=== PATIENT | female | born 1945 | race Caucasian/White ===

== ENCOUNTER → 2023-09-22 11:19 | Outpatient (REF) | payer MEDICARE, SELFPAY ==
[2023-09-22 11:43] LABS: Hematocrit 35.1 % (37.0-47.0); Hemoglobin 12.6 g/dL (12.0-16.0); Mean Corp Hgb Conc. 35.9 g/dL (33.0-37.0); Mean Corpuscular Hgb 35.8 pg (27.0-31.0); Mean Corpuscular Volume 99.7 fL (81.0-99.0); Mean Platelet Volume 9.9 fL (7.4-10.4); Platelet Count 238 10^3/uL (130-400); Red Blood Cell Count 3.52 10^6/uL (4.20-5.40); Red Cell Dist. Width 12.9 % (11.5-14.5); White Blood Cell Count 7.3 10^3/uL (4.8-10.8)
[2023-09-22 12:08] LABS: ALT (SGPT) 31 U/L (0-35); AST (SGOT) 32 U/L (14-36); Albumin 4.3 g/dl (3.5-5.0); Alkaline Phosphatase 95 U/L (38-126); Blood Urea Nitrogen 19 mg/dl (7-17); Calcium 9.7 mg/dl (8.4-10.2); Carbon Dioxide 28 mmol/L (22-30); Chloride 95 mmol/L (98-107); Glucose 85 mg/dl (70-99); Iron 164 ug/dl (37-170); Potassium 5.2 mmol/L (3.5-5.1); Sodium 130 mmol/L (135-145); Total Bilirubin 0.8 mg/dl (0.2-1.3); eGFR 57.66
[2023-09-22 12:17] LABS: Percent Saturation 53 % (20-50); Total Iron Binding Capacity 308 ug/dl (265-497)
[2023-09-22 13:15] LABS: Folate > 20.0 ng/ml (2.76-20); Vitamin B12 > 1000 pg/ml (239-931)
[2023-09-24 18:31] LABS: Quantiferon Mitogen minus NIL 9.06 IU/mL; Quantiferon NIL 0.03 IU/mL; Quantiferon Plus TB2 minus NIL 0.06 IU/mL (0.00-0.34); Quantiferon TB Gold Plus Negative (Negative)
== END ==
LOC: REG 11:19
PROVIDERS: ATTENDING PHYSICIAN Internal Medicine Gastroenterology; FAMILY PHYSICIAN Physician Assistant
DX: K51.018 Ulcerative (chronic) pancolitis with other complication (principal); Z79.899 Other long term (current) drug therapy
CPT/HCPCS: 36415; 80053; 82607; 82728; 82746; 83540; 83550; 85027; 86480

== ENCOUNTER → 2023-09-27 08:59 | Day surgery (SDC) | payer MEDICARE, SELFPAY | LOC: CATH 08:59 | PROVIDERS: ATTENDING PHYSICIAN Internal Medicine Cardiovascular Disease; FAMILY PHYSICIAN Nurse Practitioner Adult Health | DX: I48.91 Unspecified atrial fibrillation (principal); I10 Essential (primary) hypertension; E78.5 Hyperlipidemia, unspecified; Z87.891 Personal history of nicotine dependence; Z79.01 Long term (current) use of anticoagulants | CPT/HCPCS: 92960; 93005 ==

== ENCOUNTER 2023-12-27 07:54 | Day surgery (SDC) | payer MEDICARE, SELFPAY ==
[2023-12-22 09:06] VITALS: BMI 24.8
[2023-12-27] VITALS (14 sets, daily range): BP systolic 108–152; BP diastolic 52–97
[2023-12-27] MEDS: NSS 500 IV (08:41)
--- NOTE | 2023-12-27 12:03 | ITS.CL.ABL ---
[employer] - Ablation
Ablation
Procedure Report:
AFIB ablation:
Ms. Rios is a very pleasant 78 yr old woman with symptomatic persistent AF who had his first AF ablation in 2005 and redo in 2010 at [facility] with recurrence of persistent AF failed Flecainide and has hx of tachycardia induced
cardiomyopathy and presented today to the EP lab for atrial fibrillation ablation
Date of Procedure:
12/27/2023
Indications:
Persistent recurrent atrial fibrillation
Pre-Operative Diagnosis:
Persistent Atrial fibrillation
Post-Operative Diagnosis:
Persistent Atrial fibrillation
Procedure Performed:
Atrial fibrillation Redo ablation with wide area circumferential ablation (WACA) approach for pulmonary vein re-isolation
Roof line formation
Posterior wall isolation
Performing Physician:
Rossana Sanchez MD
Assistants:
EP staff
Anesthesia:
See anesthesia records
Detailed Description of the Procedure:
Written informed consent was obtained from the patient after a full explanation of the risks and benefits of the procedure including the risks of sedation and anesthesia.
The patient was brought to the electrophysiology laboratory in stable condition in fasting state. Continuous electrocardiographic and hemodynamic monitoring was initiated.
The initial rhythm was atrial fibrillation.
The procedure site was meticulously prepared with surgical scrub and allowed to dry with no pooling. Sterile draping was applied to cover the procedure site. The image intensifier was draped with sterile bag and positioned over the patient. After
infusion of local anesthetic, vascular access was obtained under ultrasound guidance and sheaths were placed over guide wire as detailed below.
Sheath and Catheter Placement:
The following catheters / sheaths were placed
Sheaths:
��������� Agilis sheath in right femoral vein upgraded from 8Fr in right femoral vein
��������� 7Fr in right femoral vein
��������� 9Fr in right femoral vein
Catheters:
��������� Biosense Conway Thermocool STSF bidirectional� - at locations of HRA, RV, LA and LV.
��������� Pentaray catheter � at locations of RA, RV, LA and LV
��������� ICE catheter -AcuNav -� at locations of RA, SVC, and RV.
��������� Decapolar Bard catheter in RA and CS
Intracardiac ECHO:
An 8-Bangladeshi AcuNav intracardiac ECHO (ICE) probe was advanced through the 9-Bangladeshi sheath in the left femoral vein into the right atrium under fluoroscopic and ICE ultrasound image guidance and a baseline ECHO study was performed. The left atrial
size was severely dilated. There was mild to moderate tricuspid regurgitation. The aortic valve was grossly normal. There was mild left ventricular systolic dysfunction. There was trace pericardial effusion. The MICHAEL has decreased velocities noted on
Doppler. All the four veins were identified and has good flow identified.
During the procedure, ICE was used for monitoring of complications, guidance of trans-septal puncture, monitor the catheter position and tracking ablation lesions. No change in the pericardial space noted throughout the procedure.
Trans-septal Puncture:
Heparin was initiated and infused to maintain appropriate ACT. A J-tipped guidewire was advanced through the 8-Bangladeshi sheath in the right femoral vein into the superior vena cava under fluoroscopic and ICE guidance. The 8-Bangladeshi sheath was exchanged
for an Agilis sheath which was advanced into the superior vena cava. A BRK transseptal needle was advanced until the tip was slightly behind the tip of the dilator inside the sheath. The apparatus was withdrawn until it was in contact with the fossa
ovalis The position was adjusted based on fluoroscopy and ultrasound images from ICE. Under fluoroscopic, hemodynamic and ICE ultrasound guidance, left atrium was cannulated by advancing the needle. Once atrial septum was cannulated, the needle was
pulled back and a BMW guide wire was advanced through the needle into the left atrium. The guide wire was advanced into the left superior pulmonary vein. Both the sheath and the dilator was advanced into the left atrium under fluoro and ICE
guidance. The dilator with the needle was withdrawn. Blood was aspirated from the Agilis sheath and arterial blood confirmed. The sheath was flushed. Saline injection noted into the left atrium on ICE. The mapping catheter was advanced in the Agilis
sheath into the left pulmonary vein.
3D Electroanatomic Mapping:
Using the Pentaray catheter advanced through Agilis sheath into the left atrium, an electroanatomic map (EAM) of the left atrium was created using [employer] Cart[employer] mapping system. The map was used for localization of catheter position and
tacking of ablation lesions. The EAM of the left atrium showed 4 pulmonary veins with both left and right sided pulmonary veins electrically reconnected to the LA with most of the left sided silent with only epicardial connections noted.
It showed scattered scar on the posterior and anterior septal wall of the LA. The LA was dilated in size
Following the EAM, preparation were made for ablation.
Ablation:
Ablation # 1: Pulmonary vein Isolation:
Radiofrequency ablation was performed using an open irrigation, force-sensing 3.5mm radiofrequency ablation catheter (CommonFloor STSF) by completing the circumferential lesions around the right and left �pulmonary vein achieving pulmonary vein
isolation. There was fractionalted signal noted in the antrum of the LIPV and additional ablations were placed to create full isolation.
All the ablation lesions were guided by the SANDOW SURPOINT module with the posterior lesions were limited to 45 barnes for SURPOINT lesion index goal of 400 and anterior wall lesions were limited to SURPOINT index goal of 450.
Cardioversion:
Due to the persistence of atrial fibrillation during the case, the decision was made to proceed with a cardioversion followed by the remainder of the ablation as detailed below. Therefore, a 200J shock was delivered to the chest via Zoll patches
placed with presybeterian of sinus rhythm. The patient remained hemodynamically stable throughout.
Ablation # 2: Roof line Formation:
There was a clear channel of electrical activity left in the posterior wall with multiple CFAE and AF areas on the roof significant scar noted on the roof with some residual electrical activity noted. This increased the risk of atrial flutter and
decision was made to create a roof line to block a slow conduction.
A set of radiofrequency ablations were placed on the roof line connecting the left superior pulmonary vein ablation lesions to the right superior pulmonary vein lesions rings.
The EAM of the LA showed block at the roof line with electrical current coming from bottom up to the roof.
Posterior wall isolation with the Box lesions set Formation:
There was a significant fractionation seen in the posterior wall and LA AF foci made it clear as the posterior wall is critical in maintaining the atrial fibrillation and the decision was made to isolate the posterior wall by creating a �Box�
lesions.
A set of radiofrequency ablations were placed on the floor line connecting the left inferior pulmonary vein ablation lesions to the right inferior pulmonary vein lesions rings.
The penta-ray in the posterior wall showed entrance block with dissociated potentials and the pacing from the posterior wall showed local capture with no exit from the box lesions confirming the exit block.
The esophagus was noted to be on the mid of the LA based on the locations of the esophageal temperature probe. Ablation was stopped for any temperature increase of 0.1 degree C. Max esophageal temperature was 39.1C.
Confirmation of the PVI and bidirectional block:
Following achievement of entrance block at the pulmonary veins, pacing from the pentaray in each of the four veins at 10 milliamps for 2 milliseconds showed entrance and exit block.
EP study:
Normal AV conduction noted.
The sinus node has recovered and patient remained in sinus rhythm
All PVI were rechecked at the end of the case and remained isolated with dissociated and local capture with pacing. Entrance and exit block were demonstrated in all veins.
Procedure End
ICE study was done again that showed no epicardial accumulation. No complications noted.
Following the completion of the EP study, catheters were removed. Protamine 40 mg was given at the end of the procedure and ACT was checked repeatedly. The sheaths were removed and hemostasis achieved with manual compression after acceptable ACT is
achieved.
Left atrial Pressure:
Pre-Procedure: Mean LA pressure was 14mmHg
Post-Procedure: Mean LA pressure was 14mmHg
Post-Procedure: Mean RA pressure was 8mmHg
Estimated Blood loss:
<10 cc
Specimens Removed:
None.
Implants / Devices:
None
Urine output:
None
Packs / Drains/ Tubes:
None
Instrument / Sponge Count Correct:
Yes
Complications of the Procedure:
None
Condition of Patient at Time of Transfer:
Hemodynamically stable with no neurological or vascular compromise.
Summary:
Successful atrial fibrillation ablation with circumferential bidirectional line of block at pulmonary venin antra (Pulmonary vein isolation), Roof line formation, Posterior wall isolation.
Figures from the Procedure:
Figure 1: The electroanatomic mapping (EAM) of the left atrium with bipolar voltage (purple indicates normal electrical activity with red as no myocardial muscle electric activity indicating a line of block
--- NOTE | 2023-12-27 14:39 | W.PN.UPDATE ---
Update Note
Progress Note Update
78 yo WF s/p PVI (same day). She feels great, no cp, sob, giovanni diet, voiding, amb w/o dizziness, EKG SR, R fem site c/d/i no HT, soft. She will take Eliquis at home at 6pm. Activity restrictions reviewed. She will f/u [employer] in 2 weeks. She is for d/c
home after 230p.
Ms. Rios is a very pleasant 78 yr old woman with symptomatic persistent AF who had his first AF ablation in 2005 and redo in 2010 at [facility] with recurrence of persistent AF failed Flecainide and has hx of tachycardia induced
cardiomyopathy and presented today to the EP lab for atrial fibrillation ablation
Date of Procedure:
12/27/2023
Procedure Performed:
Atrial fibrillation Redo ablation with wide area circumferential ablation (WACA) approach for pulmonary vein re-isolation
Roof line formation
Posterior wall isolation
[2023-12-27 14:41] LABS: ACT-LR - POC > 397 Seconds (116-155)
[2023-12-27 14:41] LABS: ACT-LR - POC > 397 Seconds (116-155)
== END 2023-12-27 14:44 | disposition home or self-care (01) ==
LOC: CATH 07:54
PROVIDERS: ATTENDING PHYSICIAN Internal Medicine Cardiovascular Disease; FAMILY PHYSICIAN Physician Assistant
DX: I48.19 Other persistent atrial fibrillation (principal); J44.9 Chronic obstructive pulmonary disease, unspecified; I42.0 Dilated cardiomyopathy; E78.2 Mixed hyperlipidemia; I10 Essential (primary) hypertension
CPT/HCPCS: C1894; C1730; C1732; C1766; C1892; C1759; 76937; 85347; 86900; 86901; 93005; 93656; C1760; C1769

== ENCOUNTER → 2024-01-04 10:30 | Outpatient (REF) | payer MEDICARE, SELFPAY ==
[2024-01-05 19:02] LABS: Hepatitis B Surface Antigen Negative (Negative)
[2024-01-05 19:20] LABS: Hepatitis B Core Ab, Total Negative (Negative); Hepatitis B Surface Antibody Positive
== END ==
LOC: REG 10:30
PROVIDERS: ATTENDING PHYSICIAN Internal Medicine Gastroenterology; FAMILY PHYSICIAN Physician Assistant
DX: K51.018 Ulcerative (chronic) pancolitis with other complication (principal)
CPT/HCPCS: 36415; 86704; 86706; 87340

== ENCOUNTER 2024-01-09 09:05 | Day surgery (SDC) | payer MEDICARE, SELFPAY | END 2024-01-09 11:00 | disposition home or self-care (01) | LOC: CATH 09:05 | PROVIDERS: ATTENDING PHYSICIAN Internal Medicine Cardiovascular Disease; FAMILY PHYSICIAN Physician Assistant; OTHER PHYSICIAN Nuclear Medicine Nuclear Cardiology | DX: I48.19 Other persistent atrial fibrillation (principal); Z53.09 Procedure and treatment not carried out because of other contraindication; I42.0 Dilated cardiomyopathy; I10 Essential (primary) hypertension; J44.9 Chronic obstructive pulmonary disease, unspecified; Z87.891 Personal history of nicotine dependence; Z79.01 Long term (current) use of anticoagulants | CPT/HCPCS: 93005 ==

== ENCOUNTER → 2024-03-15 10:29 | Outpatient (REF) | payer MEDICARE, SELFPAY ==
[2024-03-15 11:57] LABS: Intact PTH 76.6 pg/ml (13.6-85.8)
[2024-03-15 12:22] LABS: Vitamin D, 25-OH*** 56.1 ng/mL (30-80)
[2024-03-15 12:25] LABS: ALT (SGPT) 35 U/L (0-35); AST (SGOT) 42 U/L (14-36); Albumin 4.4 g/dl (3.5-5.0); Alkaline Phosphatase 104 U/L (38-126); Blood Urea Nitrogen 14 mg/dl (7-17); Calcium 9.7 mg/dl (8.4-10.2); Carbon Dioxide 22 mmol/L (22-30); Chloride 99 mmol/L (98-107); Glucose 95 mg/dl (70-99); HDL Cholesterol 80 mg/dl; LDL Cholesterol, Calculated 66 mg/dl; Potassium 4.7 mmol/L (3.5-5.1); Sodium 130 mmol/L (135-145); Total Bilirubin 0.9 mg/dl (0.2-1.3); Total Cholesterol 167 mg/dl (50-199); Triglyceride 107 mg/dl (10-149); Very Low Density Lipoprotein 21 mg/dl (0-30); eGFR > 60.00
[2024-03-15 12:36] LABS: TSH Reflex To Free T4 1.16 uIU/ml (0.47-4.68)
== END ==
LOC: WDC 10:29
PROVIDERS: Internal Medicine Endocrinology, Diabetes & Metabolism; ATTENDING PHYSICIAN Physician Assistant; REFERRING PHYSICIAN Internal Medicine Rheumatology
DX: Z12.31 Encounter for screening mammogram for malignant neoplasm of breast (principal); E78.2 Mixed hyperlipidemia; E83.52 Hypercalcemia; E55.9 Vitamin D deficiency, unspecified; E34.9 Endocrine disorder, unspecified; E21.3 Hyperparathyroidism, unspecified; M81.0 Age-related osteoporosis without current pathological fracture; Z68.25 Body mass index [BMI] 25.0-25.9, adult; Z79.899 Other long term (current) drug therapy
CPT/HCPCS: 36415; 77063; 77067; 80053; 80061; 82306; 82330; 83970; 84443

== ENCOUNTER → 2024-03-22 10:48 | Outpatient (REF) | payer MEDICARE, SELFPAY | LOC: REG 10:48 | PROVIDERS: ATTENDING PHYSICIAN Internal Medicine Gastroenterology | DX: K51.018 Ulcerative (chronic) pancolitis with other complication (principal) | CPT/HCPCS: 36415; 83993 ==

== ENCOUNTER → 2024-04-12 15:22 | Outpatient (REF) | payer MEDICARE, SELFPAY | LOC: MRI 3T 15:22 | PROVIDERS: ATTENDING PHYSICIAN Internal Medicine Gastroenterology; FAMILY PHYSICIAN Physician Assistant | DX: K86.2 Cyst of pancreas (principal) | CPT/HCPCS: 74183; A9575 ==

== ENCOUNTER → 2024-05-12 10:24 | Outpatient (REF) | payer MEDICARE, SELFPAY | LOC: RAD 10:24 | PROVIDERS: ATTENDING PHYSICIAN Internal Medicine Critical Care Medicine; FAMILY PHYSICIAN Physician Assistant | DX: R91.8 Other nonspecific abnormal finding of lung field (principal) | CPT/HCPCS: 71250 ==

== ENCOUNTER → 2024-06-22 06:25 | Day surgery (SDC) | payer MEDICARE, SELFPAY | LOC: GI 06:25 | PROVIDERS: ATTENDING PHYSICIAN Internal Medicine Gastroenterology | DX: K51.00 Ulcerative (chronic) pancolitis without complications (principal); K57.30 Diverticulosis of large intestine without perforation or abscess without bleeding; D12.8 Benign neoplasm of rectum; K64.8 Other hemorrhoids; Z79.01 Long term (current) use of anticoagulants | CPT/HCPCS: 45380; 88305 ==

== ENCOUNTER → 2024-08-20 10:59 | Outpatient (REF) | payer MEDICARE, SELFPAY ==
[2024-08-20 13:33] LABS: ALT (SGPT) 44 U/L (0-35); AST (SGOT) 52 U/L (14-36); Albumin 4.4 g/dl (3.5-5.0); Alkaline Phosphatase 107 U/L (38-126); Blood Urea Nitrogen 11 mg/dl (7-17); Calcium 9.5 mg/dl (8.4-10.2); Carbon Dioxide 28 mmol/L (22-30); Chloride 96 mmol/L (98-107); Glucose 87 mg/dl (70-99); Potassium 4.6 mmol/L (3.5-5.1); Sodium 133 mmol/L (135-145); Total Bilirubin 0.7 mg/dl (0.2-1.3); eGFR > 60.00
== END ==
LOC: RAD 10:59
PROVIDERS: ATTENDING PHYSICIAN Internal Medicine Rheumatology; FAMILY PHYSICIAN Physician Assistant
DX: M81.0 Age-related osteoporosis without current pathological fracture (principal); Z13.820 Encounter for screening for osteoporosis; E21.3 Hyperparathyroidism, unspecified; E55.9 Vitamin D deficiency, unspecified; K51.90 Ulcerative colitis, unspecified, without complications; Z79.899 Other long term (current) drug therapy
CPT/HCPCS: 36415; 77080; 80053

== ENCOUNTER → 2024-09-18 13:17 | Outpatient (REF) | payer MEDICARE, SELFPAY ==
[2024-09-18 14:09] LABS: % Eosinophils 1.6 % (0-6); % Immature Granulocytes 0.5 % (0-0.5); % Lymphocytes 16.5 % (20.5-51.1); % Monocytes 7.8 % (1.7-9.3); % Neutrophils 72.6 % (42.2-75.2); Absolute Basophils 0.1 10^3/uL (0-0.2); Absolute Eosinophils 0.2 10^3/uL (0-0.7); Absolute Immature Granulocytes 0.1 10^3/uL (0-0.05); Absolute Lymphocytes 1.5 10^3/uL (1.2-3.4); Absolute Monocytes 0.7 10^3/uL (0.1-0.6); Absolute Neutrophils 6.7 10^3/uL (1.4-6.5); Hematocrit 35.9 % (37.0-47.0); Hemoglobin 12.9 g/dL (12.0-16.0); Mean Corp Hgb Conc. 35.9 g/dL (33.0-37.0); Mean Corpuscular Hgb 35.5 pg (27.0-31.0); Mean Corpuscular Volume 98.9 fL (81.0-99.0); Mean Platelet Volume 10.3 fL (7.4-10.4); Nucleated Red Blood Cells % 0 %; Platelet Count 234 10^3/uL (130-400); Red Blood Cell Count 3.63 10^6/uL (4.20-5.40); Red Cell Dist. Width 12.8 % (11.5-14.5); White Blood Cell Count 9.3 10^3/uL (4.8-10.8)
[2024-09-18 14:34] LABS: ALT (SGPT) 28 U/L (0-35); AST (SGOT) 40 U/L (14-36); Alkaline Phosphatase 99 U/L (38-126); Direct Bilirubin 0.1 mg/dl (0.0-0.4); Iron 106 ug/dl (37-170); Total Bilirubin 0.5 mg/dl (0.2-1.3)
[2024-09-18 14:42] LABS: Total Protein 6.4 g/dl (6.3-8.2)
[2024-09-18 14:46] LABS: Percent Saturation 42 % (20-50); Total Iron Binding Capacity 249 ug/dl (265-497)
[2024-09-18 15:08] LABS: Ferritin 88.6 ng/ml (11.1-264.0)
== END ==
LOC: REG 13:17
PROVIDERS: ATTENDING PHYSICIAN Internal Medicine Rheumatology; FAMILY PHYSICIAN Physician Assistant
DX: K51.911 Ulcerative colitis, unspecified with rectal bleeding (principal); R79.89 Other specified abnormal findings of blood chemistry; R94.5 Abnormal results of liver function studies
CPT/HCPCS: 36415; 80076; 82728; 83540; 83550; 85025

== ENCOUNTER → 2025-01-23 12:38 | Outpatient (REF) | payer MEDICARE, SELFPAY ==
[2025-01-23 13:08] LABS: Hemoglobin 13.9 g/dL (12.0-16.0); Mean Corp Hgb Conc. 35.6 g/dL (33.0-37.0); Mean Corpuscular Hgb 36.1 pg (27.0-31.0); Mean Corpuscular Volume 101.3 fL (81.0-99.0); Mean Platelet Volume 10.4 fL (7.4-10.4); Platelet Count 205 10^3/uL (130-400); Red Blood Cell Count 3.85 10^6/uL (4.20-5.40); Red Cell Dist. Width 13.2 % (11.5-14.5); White Blood Cell Count 8.2 10^3/uL (4.8-10.8)
[2025-01-23 15:22] LABS: ALT (SGPT) 45 U/L (0-35); AST (SGOT) 57 U/L (14-36); Albumin 4.5 g/dl (3.5-5.0); Alkaline Phosphatase 123 U/L (38-126); Blood Urea Nitrogen 10 mg/dl (7-17); Calcium 9.7 mg/dl (8.4-10.2); Carbon Dioxide 24 mmol/L (22-30); Chloride 104 mmol/L (98-107); Glucose 103 mg/dl (70-99); Iron 130 ug/dl (37-170); Potassium 4.4 mmol/L (3.5-5.1); Sodium 138 mmol/L (135-145); Total Bilirubin 0.9 mg/dl (0.2-1.3); Total Protein 7.2 g/dl (6.3-8.2); eGFR > 60.00
[2025-01-23 15:31] LABS: Folate > 20.0 ng/ml (2.76-20); Vitamin B12 987 pg/ml (239-931)
[2025-01-23 15:32] LABS: Percent Saturation 50 % (20-50); Total Iron Binding Capacity 256 ug/dl (265-497)
[2025-01-25 17:39] LABS: Quantiferon Mitogen minus NIL 9.93 IU/mL; Quantiferon NIL 0.07 IU/mL; Quantiferon Plus TB1 minus NIL 0.01 IU/mL (<=0.34); Quantiferon Plus TB2 minus NIL 0.01 IU/mL (<=0.34); Quantiferon TB Gold Plus Negative (Negative)
== END ==
LOC: REG 12:38
PROVIDERS: ATTENDING PHYSICIAN Internal Medicine Gastroenterology; FAMILY PHYSICIAN Physician Assistant
DX: K51.018 Ulcerative (chronic) pancolitis with other complication (principal); J44.9 Chronic obstructive pulmonary disease, unspecified
CPT/HCPCS: 36415; 80053; 82607; 82728; 82746; 83540; 83550; 85027; 86480

== ENCOUNTER → 2025-03-04 12:36 | Outpatient (REF) | payer MEDICARE, SELFPAY ==
[2025-03-08 13:50] LABS: Calprotectin, Fecal 34 ug/g (<=49)
== END ==
LOC: REG 12:36
PROVIDERS: ATTENDING PHYSICIAN Internal Medicine Gastroenterology; FAMILY PHYSICIAN Physician Assistant
DX: K51.018 Ulcerative (chronic) pancolitis with other complication (principal)
CPT/HCPCS: 83993

== ENCOUNTER → 2025-03-19 11:32 | Outpatient (REF) | payer MEDICARE, SELFPAY | LOC: WDC 11:32 | PROVIDERS: ATTENDING PHYSICIAN Physician Assistant; FAMILY PHYSICIAN Family Medicine | DX: Z12.31 Encounter for screening mammogram for malignant neoplasm of breast (principal); N63.10 Unspecified lump in the right breast, unspecified quadrant | CPT/HCPCS: 77063; 77067 ==

== ENCOUNTER → 2025-03-26 09:23 | Outpatient (REF) | payer MEDICARE, SELFPAY | LOC: WDC 09:23 | PROVIDERS: ATTENDING PHYSICIAN Physician Assistant | DX: R92.8 Other abnormal and inconclusive findings on diagnostic imaging of breast (principal) | CPT/HCPCS: 76642 ==

== ENCOUNTER → 2025-04-29 11:22 | Outpatient (REF) | payer MEDICARE, SELFPAY ==
[2025-04-29 13:54] LABS: ALT (SGPT) 41 U/L (0-35); AST (SGOT) 49 U/L (14-36); Albumin 4.6 g/dl (3.5-5.0); Alkaline Phosphatase 113 U/L (38-126); Blood Urea Nitrogen 9 mg/dl (7-17); Calcium 10.1 mg/dl (8.4-10.2); Carbon Dioxide 26 mmol/L (22-30); Chloride 96 mmol/L (98-107); Glucose 81 mg/dl (70-99); Potassium 4.8 mmol/L (3.5-5.1); Sodium 131 mmol/L (135-145); Total Protein 7.4 g/dl (6.3-8.2); Very Low Density Lipoprotein 37 mg/dl (0-30); eGFR > 60.00
[2025-04-29 14:04] LABS: HDL Cholesterol 110 mg/dl; LDL Cholesterol, Calculated 22 mg/dl
[2025-04-29 14:10] LABS: Vitamin D, 25-OH*** 72.5 ng/mL (30-80)
== END ==
LOC: REG 11:22
PROVIDERS: ATTENDING PHYSICIAN Physician Assistant; OTHER PHYSICIAN Internal Medicine Rheumatology
DX: E78.5 Hyperlipidemia, unspecified (principal); E55.9 Vitamin D deficiency, unspecified; E83.52 Hypercalcemia; K51.90 Ulcerative colitis, unspecified, without complications; M81.0 Age-related osteoporosis without current pathological fracture; R94.5 Abnormal results of liver function studies; Z79.899 Other long term (current) drug therapy
CPT/HCPCS: 36415; 80053; 80061; 82306

== ENCOUNTER → 2025-06-12 11:01 | Outpatient (REF) | payer MEDICARE, SELFPAY | LOC: PAVMRI 11:01 | PROVIDERS: ATTENDING PHYSICIAN Internal Medicine Gastroenterology; FAMILY PHYSICIAN Physician Assistant | DX: K86.2 Cyst of pancreas (principal) | CPT/HCPCS: 74183 ==

== ENCOUNTER 2025-07-04 06:12 | Inpatient (IN) | payer MEDICARE, SELFPAY ==
[2025-07-04] VITALS (33 sets, daily range): BP systolic 80–154; BP diastolic 49–136; BMI 23.4
[2025-07-04 02:27] LABS: Hematocrit 40.3 % (37.0-47.0); Hemoglobin 14.3 g/dL (12.0-16.0); Mean Corp Hgb Conc. 35.5 g/dL (33.0-37.0); Mean Corpuscular Volume 102.5 fL (81.0-99.0); Platelet Count 213 10^3/uL (130-400); Red Cell Dist. Width 12.5 % (11.5-14.5)
[2025-07-04 02:32] LABS: INR 1.41; PT 17.8 Sec (11.4-14.6)
[2025-07-04 02:33] LABS: APTT 28.3 Sec (23.4-35.0)
[2025-07-04 02:43] LABS: ALT (SGPT) 55 U/L (0-35); AST (SGOT) 118 U/L (14-36); Albumin 4.0 g/dl (3.5-5.0); Alkaline Phosphatase 285 U/L (38-126); Blood Urea Nitrogen 19 mg/dl (7-17); Calcium 8.7 mg/dl (8.4-10.2); Carbon Dioxide 13 mmol/L (22-30); Chloride 100 mmol/L (98-107); Estimated Creatinine Clearance 26 ml/min; Glucose 101 mg/dl (70-99); Potassium 3.7 mmol/L (3.5-5.1); Sodium 128 mmol/L (135-145); Total Protein 6.7 g/dl (6.3-8.2); eGFR 38.03
[2025-07-04] MEDS: THIAMINE INJECTION 100 MG IV (03:15)
[2025-07-04] MEDS: NSS 1000 IV ×2 (03:16→04:20)
[2025-07-04] MEDS: PROTONIX 100 IV (03:25)
[2025-07-04] MEDS: PROTONIX IV 40 MG IV ×2 (03:25→21:02)
[2025-07-04 03:28] LABS: Nucleated Red Blood Cells % 0 %
[2025-07-04 03:32] LABS: Venous Blood Gas B.E. -15.8 mmol/L (-4 to +4); Venous Blood Gas O2 Sat % 75.4 %
[2025-07-04 03:38] LABS: Venous Blood Gas O2 Therapy 21
--- NOTE | 2025-07-04 03:44 | ED.GENMED ---
History of Present Illness
<HERMANN Mckenna Last Filed: 07/04/25 06:55>
General
Chief Complaint: Rectal Bleeding
Source: patient
Exam Limitations: none
Time Seen by Provider: 07/04/25 02:35
Nursing documentation reviewed up to this point in time: agreed with
History of Present Illness
History of Present Illness:
see MDM
Past History
<HERMANN Mckenna Filed: 07/04/25 06:55>
Past History
ED Past Medical History: COPD and HTN
ED Past Surgical History: Orthopedic
Social History
Tobacco: Non-smoker
Personal: Single
Living: alone
Phy Exam
<HERMANN Mckenna Filed: 07/04/25 06:55>
Physical Exam
Physical Exam:
GENERAL: Alert, slightly weak, occasionally groggy
HEAD: Hematoma to the forehead, appears old, dark and bruised
NECK: no midline tenderness, active ROM intact, no paraspinal muscle tenderness;
EYE:, left pupil uneven, EOMs intact.
ENT: o/p clr, dry mouth. no hemotympanum
CARDIAC: Regular rate and rhythm, no edema
LUNGS: Clear breath sounds bilaterally, no acute respiratory distress, no wheezes/rales/rhonchi
ABDOMEN: Soft, without focal tenderness, no r/g, no cvat
No active bleeding from her rectum, some trace pink in her vault which is heme positive, the stool looks like a brown-red color without clots
There was not a large volume GI bleeding
NEUROLOGICAL: Alert and oriented, no focal neuro deficits, CN intact, 5/5 strength, sensation intact
SKIN: Warm and dry, multiple bruises and skin tears on her elbows and knees anteriorly
MUSCULOSKELETAL: No edema, well perfused.
PSYCH: Seems slightly intoxicated
Course
<Dorcas Layton PA-C - Last Filed: 07/04/25 06:55>
Orders/Labs/Results
Orders:
Orders
07/04/25 02:09
Cardiac Monitoring- Treatment ONCE
O2 Therapy [RESP] Urgent
Titrate/Wean O2 to maintain O2 sat greater than (%): 93
Special Instructions: MAINTAIN CONTINOUS O2 SATS > OR = 93%
Pulse Ox/spot Check [RESP] Urgent
Quantity: 1
Special Instructions: ON ROOM AIR
07/04/25 02:10
Alcohol Urgent
Complete Blood Count/With Diff Urgent
Comprehensive Metabolic Panel Urgent
Creatine Phosphokinase Urgent
Comment: ADDED
PTT Urgent
Prothrombin Time Urgent
07/04/25 03:00
Add On- LAB Urgent
Tests Added?: etoh
CT Abd/pelvis Angio W/wo Iv Urgent
Comment:
Reason For Exam: rectal bleeding hypotensive
0.9% Sodium Chloride 1000 ml [Nss] 1,000 ml IV BOLUS
Thiamine Injection 100 mg IV NOW STA
07/04/25 03:03
Type+Screen Routine
BBK Wristband Number:
07/04/25 03:04
Add On- LAB Urgent
Tests Added?: alcohol, CPK
Add On- LAB Urgent
Tests Added?: cpk
07/04/25 03:06
EKG [Electrocardiogram (*1)] Urgent
Reason for Study: Fatigue / Weakness
EKG- Treatment ONCE
07/04/25 03:07
CT Head W/o Iv Contrast Urgent
Comment:
Reason For Exam: ams
07/04/25 03:09
Lactic Acid Urgent
Venous Blood Gas Urgent
%Oxygen/Room Air: 21
07/04/25 03:13
Pantoprazole 80 mg/100 ml Nss [Protonix] 80 mg in 100 ml IV NOW
Pantoprazole [Protonix IV] 40 mg IV NOW STA
07/04/25 03:45
Piperacillin/Tazo 3.375 Gram [Zosyn] 3.375 gram in 50 ml IV NOW
07/04/25 04:15
0.9% Sodium Chloride 1000 ml [Nss] 1,000 ml IV BOLUS
07/04/25 04:24
STOOL [C difficile Antigen & Toxins] Urgent
WALT Source: Feces/Stool
Specimen Description:
Date Specimen was Collected: 07/04/25
Time Specimen was Collected: 03:34
Stool Culture Urgent
WALT Source: Feces/Stool
Specimen Description:
Date Specimen was Collected: 07/04/25
Time Specimen was Collected: 03:34
07/04/25 04:38
Blood Culture Q30M
WALT Source: Blood/Venous
Specimen Description:
07/04/25 04:49
Blood Culture Q30M
WALT Source: Blood/Venous
Specimen Description:
07/04/25 05:00
0.9% Sodium Chloride 1000 ml [Nss] 1,000 ml Mvi, Adult [Multivitamin] 10 ml Thiamine Injection 100 mg IV 1,000 mls/hr
07/04/25 05:09
Lorazepam [Ativan] 0.5 mg IV NOW STA
07/04/25 05:32
Chevy Hugger-Treatment ONCE
Patient's goal temperature:: 36.1 C
Additional Instructions:: Temperature and skin assessment per unit protocol
07/04/25 05:50
Admit/Transfer Patient As Directed
Co-Sign Provider:
Level of Care: Inpatient admission
Assign to:: IMU- Intermediate Care
Physician / Group: Reinier
Diagnosis: rectal bleeding
Reason for Hospitalization: rectal bleeding, colitis
Expected length of stay greater than two midnights?: Yes
ELOS- Estimated Length of Stay in days: 2
I certify the patient meets the requirements for IP care: Yes
PRN Pain Medication Management As Directed
May give lesser potent ordered pain med per pt: Yes
preference::
Protocol:: Medication orders for pain may be administered in a
manner that supports deferring to patient preference
when the pt is:
- Requesting an ordered lesser potent pain medication.
Least to most potent pain medications are defined
as: acetaminophen < NSAID < tramadol < opioids
(morphine, oxycodone, hydromorphone).
- Requesting a lesser dose of the same medication IF
ORDERED.
- Requesting a less intrusive route of administration
if both routes are prescribed by the provider (PO <
IV).
07/04/25 06:03
Calprotectin, Fecal [S] Routine
Date Specimen was Collected: 07/04/25
Time Specimen was Collected: 06:12
Norovirus by PCR Routine
WALT Source: Feces/Stool
Specimen Description:
07/04/25 06:11
Add On - Microbiology Urgent
Tests Added?: Norovirus
07/04/25 06:22
COVID-19 Antigen Routine
Source: Nasal Swab
07/06/25 11:00
DC Protocol for Telemetry ONCE
Abnormal Lab Results
07/04/25 07/04/25
02:10 03:09
WBC 21.7 H 10^3/uL
(4.8-10.8)
RBC 3.93 L 10^6/uL
(4.20-5.40)
MCV 102.5 H fL
(81.0-99.0)
MCH 36.4 H pg
(27.0-31.0)
MPV 10.7 H fL
(7.4-10.4)
Abs Immat Gran (auto) 0.3 H 10^3/uL
(0-0.05)
Absolute Neuts (auto) 19.0 H 10^3/uL
(1.4-6.5)
Absolute Monos (auto) 1.2 H 10^3/uL
(0.1-0.6)
Immature Gran % 1.2 H %
(0-0.5)
Neutrophils % 87.7 H %
(42.2-75.2)
Lymphocytes % 5.3 L %
(20.5-51.1)
PT 17.8 H Sec
(11.4-14.6)
VBG pH 7.08 L*
(7.32-7.43)
VBG pO2 52 H mmHg
(30-50)
VBG HCO3 14.2 L mmol/L
(22-27)
Sodium 128 L mmol/L
(135-145)
Carbon Dioxide 13 L* mmol/L
(22-30)
BUN 19 H mg/dl
(7-17)
Creatinine 1.4 H mg/dL
(0.6-1.0)
Glucose 101 H mg/dl
(70-99)
Lactic Acid 6.8 H* mmol/L
(0.7-2.0)
AST 118 H U/L
(14-36)
ALT 55 H U/L
(0-35)
Alkaline Phosphatase 285 H U/L
(38-126)
07/04/25 02:10
07/04/25 02:10
Vital Signs
Initial and Last Documented VS:
Initial Vital Signs
Pulse Resp BP Pulse Ox
73 18 93/49 100
07/04/25 02:02 07/04/25 02:02 07/04/25 02:02 07/04/25 02:02
Last Documented Vital Signs
Temp Pulse Resp BP Pulse Ox
35.3 C L 113 23 137/59 92
07/04/25 05:18 07/04/25 06:45 07/04/25 06:45 07/04/25 06:30 07/04/25 06:45
<Dorene Ahuja, DO - Last Filed: 07/04/25 04:02>
Orders/Labs/Results
Orders:
Orders
07/04/25 02:09
Cardiac Monitoring- Treatment ONCE
O2 Therapy [RESP] Urgent
Titrate/Wean O2 to maintain O2 sat greater than (%): 93
Special Instructions: MAINTAIN CONTINOUS O2 SATS > OR = 93%
Pulse Ox/spot Check [RESP] Urgent
Quantity: 1
Special Instructions: ON ROOM AIR
07/04/25 02:10
Alcohol Urgent
Complete Blood Count/With Diff Urgent
Comprehensive Metabolic Panel Urgent
Creatine Phosphokinase Urgent
Comment: ADDED
PTT Urgent
Prothrombin Time Urgent
07/04/25 03:00
Add On- LAB Urgent
Tests Added?: etoh
CT Abd/pelvis Angio W/wo Iv Urgent
Comment:
Reason For Exam: rectal bleeding hypotensive
0.9% Sodium Chloride 1000 ml [Nss] 1,000 ml IV BOLUS
Thiamine Injection 100 mg IV NOW STA
07/04/25 03:03
Type+Screen Routine
BBK Wristband Number:
07/04/25 03:04
Add On- LAB Urgent
Tests Added?: alcohol, CPK
Add On- LAB Urgent
Tests Added?: cpk
07/04/25 03:06
EKG [Electrocardiogram (*1)] Urgent
Reason for Study: Fatigue / Weakness
EKG- Treatment ONCE
07/04/25 03:07
CT Head W/o Iv Contrast Urgent
Comment:
Reason For Exam: ams
07/04/25 03:09
Lactic Acid Urgent
Venous Blood Gas Urgent
%Oxygen/Room Air: 21
07/04/25 03:13
Pantoprazole 80 mg/100 ml Nss [Protonix] 80 mg in 100 ml IV NOW
Pantoprazole [Protonix IV] 40 mg IV NOW STA
07/04/25 03:45
Piperacillin/Tazo 3.375 Gram [Zosyn] 3.375 gram in 50 ml IV NOW
07/04/25 04:15
0.9% Sodium Chloride 1000 ml [Nss] 1,000 ml IV BOLUS
07/04/25 04:24
STOOL [C difficile Antigen & Toxins] Urgent
WALT Source: Feces/Stool
Specimen Description:
Date Specimen was Collected: 07/04/25
Time Specimen was Collected: 03:34
Stool Culture Urgent
WALT Source: Feces/Stool
Specimen Description:
Date Specimen was Collected: 07/04/25
Time Specimen was Collected: 03:34
07/04/25 04:38
Blood Culture Q30M
WALT Source: Blood/Venous
Specimen Description:
07/04/25 04:49
Blood Culture Q30M
WALT Source: Blood/Venous
Specimen Description:
07/04/25 05:00
0.9% Sodium Chloride 1000 ml [Nss] 1,000 ml Mvi, Adult [Multivitamin] 10 ml Thiamine Injection 100 mg IV 1,000 mls/hr
07/04/25 05:09
Lorazepam [Ativan] 0.5 mg IV NOW STA
07/04/25 05:32
Chevy Hugger-Treatment ONCE
Patient's goal temperature:: 36.1 C
Additional Instructions:: Temperature and skin assessment per unit protocol
07/04/25 05:50
Admit/Transfer Patient As Directed
Co-Sign Provider:
Level of Care: Inpatient admission
Assign to:: IMU- Intermediate Care
Physician / Group: Reinier
Diagnosis: rectal bleeding
Reason for Hospitalization: rectal bleeding, colitis
Expected length of stay greater than two midnights?: Yes
ELOS- Estimated Length of Stay in days: 2
I certify the patient meets the requirements for IP care: Yes
PRN Pain Medication Management As Directed
May give lesser potent ordered pain med per pt: Yes
preference::
Protocol:: Medication orders for pain may be administered in a
manner that supports deferring to patient preference
when the pt is:
- Requesting an ordered lesser potent pain medication.
Least to most potent pain medications are defined
as: acetaminophen < NSAID < tramadol < opioids
(morphine, oxycodone, hydromorphone).
- Requesting a lesser dose of the same medication IF
ORDERED.
- Requesting a less intrusive route of administration
if both routes are prescribed by the provider (PO <
IV).
07/04/25 06:03
Calprotectin, Fecal [S] Routine
Date Specimen was Collected: 07/04/25
Time Specimen was Collected: 06:12
Norovirus by PCR Routine
WALT Source: Feces/Stool
Specimen Description:
07/04/25 06:11
Add On - Microbiology Urgent
Tests Added?: Norovirus
07/04/25 06:22
COVID-19 Antigen Routine
Source: Nasal Swab
07/06/25 11:00
DC Protocol for Telemetry ONCE
Abnormal Lab Results
07/04/25 07/04/25
02:10 03:09
WBC 21.7 H 10^3/uL
(4.8-10.8)
RBC 3.93 L 10^6/uL
(4.20-5.40)
MCV 102.5 H fL
(81.0-99.0)
MCH 36.4 H pg
(27.0-31.0)
MPV 10.7 H fL
(7.4-10.4)
Abs Immat Gran (auto) 0.3 H 10^3/uL
(0-0.05)
Absolute Neuts (auto) 19.0 H 10^3/uL
(1.4-6.5)
Absolute Monos (auto) 1.2 H 10^3/uL
(0.1-0.6)
Immature Gran % 1.2 H %
(0-0.5)
Neutrophils % 87.7 H %
(42.2-75.2)
Lymphocytes % 5.3 L %
(20.5-51.1)
PT 17.8 H Sec
(11.4-14.6)
VBG pH 7.08 L*
(7.32-7.43)
VBG pO2 52 H mmHg
(30-50)
VBG HCO3 14.2 L mmol/L
(22-27)
Sodium 128 L mmol/L
(135-145)
Carbon Dioxide 13 L* mmol/L
(22-30)
BUN 19 H mg/dl
(7-17)
Creatinine 1.4 H mg/dL
(0.6-1.0)
Glucose 101 H mg/dl
(70-99)
Lactic Acid 6.8 H* mmol/L
(0.7-2.0)
AST 118 H U/L
(14-36)
ALT 55 H U/L
(0-35)
Alkaline Phosphatase 285 H U/L
(38-126)
07/04/25 02:10
07/04/25 02:10
Vital Signs
Initial and Last Documented VS:
Initial Vital Signs
Pulse Resp BP Pulse Ox
73 18 93/49 100
07/04/25 02:02 07/04/25 02:02 07/04/25 02:02 07/04/25 02:02
Last Documented Vital Signs
Temp Pulse Resp BP Pulse Ox
35.3 C L 113 23 137/59 92
07/04/25 05:18 07/04/25 06:45 07/04/25 06:45 07/04/25 06:30 07/04/25 06:45
<Dorcas Layton PA-C - Last Filed: 07/04/25 06:55>
MDM/Problems Addressed
Differential Diagnosis Includes:
see MDM
MDM/Problems Addressed:
Note:
CHIEF COMPLAINT(S)
Rectal bleeding.
HISTORY OF PRESENT ILLNESS
The patient 80 y/o female, presents with rectal bleeding. from EMS from home, lives alone. She reports the bleeding started recently and describes the blood as bright red. started with diarrhea and then developed. The bleeding was significant enough
to cause weakness, and the patient recounts having to crawl to open the door for assistance due to an inability to stand. She has not experienced similar episodes in the past. but she does hae h/o ulcerative colitis based on previous imaging; she
was poor historian and just repeated she was feeling very weak
pt does drink alcohol daily and admiteted to drinking here
The patient denies abdominal pain, but her blood pressure is noted to be quite low. She is currently on anticoagulation therapy with apixaban (Eliquis), though she was unable to specify the reason for this treatment
she has wounds on her legs and arms/bruises to face
unclear if she is reliable historian
ADDITIONAL HISTORY OBTAINED FROM SOURCES OTHER THAN THE PATIENT
According to the nursing staff, the patient was found on the floor, having crawled there after feeling too weak to stand. She was placed on a bedpan, and only a small volume of bright red blood was observed. No significant blood volume was noted at
home, and it was not reported that the patient was covered in blood. There was no specific mention of the amount of bleeding or measurement of blood loss.
CHRONIC MEDICAL CONDITIONS SIGNIFICANTLY AFFECTING CARE
The patient is on anticoagulation therapy with apixaban (Eliquis).
SOCIAL DETERMINANTS AFFECTING HEALTH
The patient drinks alcohol daily, which may impact her overall health and adherence to medical treatments.
MEDICATIONS
Apixaban (Eliquis) - dosage unspecified.
PHYSICAL EXAM
see above
- Nursing notes reviewed and vital signs reviewed.
PLAN
The patient will have her blood type and screen ordered to assess for potential transfusion needs. A blood alcohol level will be drawn to evaluate her alcohol use. An intravenous line is to be established, and laboratory tests, including a lactic
acid level, will be conducted. Diagnostic imaging or further examination may be necessary given the reported weakness and history of crawling on the ground.
DIFFERENTIAL DIAGNOSIS
The Differential Diagnosis includes, in no particular order and is not limited to:
1. Gastrointestinal bleeding secondary to hemorrhoids.
2. Peptic ulcer disease.
3. Colorectal cancer.
4. Gastrointestinal malignancy.
5. Diverticulosis.
6. Rectal varices.
7. Alcohol-related liver disease causing coagulopathy.
8. Anticoagulation complications.
9. Anal fissure.
10. Angiodysplasia.
nikhil erazo 80 y/o F poor historian alcoholic
h/o UC
rectal bleeding tonight, weakness, crawled on floor to get help
does not sound like large volume bleeding but pt is not reliable, hypotensive, intoxicated
no abd tenderness
iniitally hypotensive, improved with fluids
lactic acidosis ph 7.08
only had small brown/red stool (10 ml) initially ; on bedpan now
hg stable
CT colitis, no active bleeding
alcohol 56; starting to have some tremors
zosyn, sepsis fluids
bairhugger, temp 95.5
<Dorcas Layton PA-C - Last Filed: 07/04/25 06:55>
*Pulse Oximetry
SaO2: 99
Oxygen Mode of Delivery: Room air
Patient hypoxic: no (100)
*Critical Care Note
Total Time (30-74mins, 75-104mins- exclusive of procedures): Not Applicable
ED Attending Note
<Dorcas Layton PA-C - Last Filed: 07/04/25 06:55>
-
Portions of this chart may have been created with voice recognition software.� Occasional wrong word or��sound alike� substitutions may have occurred due to the inherent limitations of voice recognition software.
<Dorene Ahuja DO - Last Filed: 07/04/25 04:02>
ED Attending Note
Patient seen and examined by attending physician: Yes
I performed a history and physical exam of patient and discussed management with resident, I reviewed resident's note and agree with documented findings and plan of care.: Yes
ED Attending Note:
80-year-old woman with history of ulcerative colitis, history of A-fib chronically maintained on Eliquis. She also has history of alcohol abuse admits to daily alcohol consumption. She presents from home via EMS with complaints of bright red
rectal bleeding/diarrhea that began this evening. She admits to generalized weakness, no falls nor syncope but was unable to get up off of the floor and needed to crawl across the floor.
Moderately hypotensive upon arrival without tachycardia.
Hypotension has improved with IV fluid bolus.
80-year-old woman appears her stated age, awake, mildly drowsy. Mildly confused.
Heart is regular rate and rhythm.
Abdomen is rotund, soft, mild generalized tenderness to the lower abdomen with deep palpation only.
Liquid brown stool is heme positive.
Extremities with multiple diffuse bruises of various age. No palpable tenderness of extremities.
Concern for exacerbation of ulcerative colitis, pancolitis, infectious colitis, diverticular bleed, upper GI bleed is also a consideration.
Concern for sepsis.
Concern for coagulopathy related to Eliquis which may be aggravated by alcohol consumption. Concern for hepatic insufficiency.
Labs thus far reveal elevated white blood cell count of 21.7. Normal H&H.
Chemistries reveal moderate metabolic acidosis, acute kidney injury with creatinine of 1.4. Baseline 0.7-0.8.
Moderately elevated LFTs, has trended up from previous.
Lactic acid is pending.
Due to lethargy, unreliable historian, concern for occult head injury thus we will check CT of the head, will also check CT abdomen pelvis.
Will continue IV fluids. IV Protonix bolus and drip initiated.
Discharge Plan
Departure
Patient Disposition: Admit
Date of Disposition: 07/04/25
Time of Disposition: 05:34
Admit to: IMU
Presentation/result/management discussed w/ accepting MD/DO: Hospitalist
Condition: Critical
Covid-19: Not Applicable
Discharge Problem:
GI (gastrointestinal bleed), Acidosis, lactic, Alcoholism, Hypothermia
Interventions
Interventions:
*Risk Screen - Suicide Last Done: 07/04/25 02:02
*General Assessment Last Done: 07/04/25 02:02
*Neglect/Abuse Screening Last Done: 07/04/25 02:02
*ED- Fall Risk Assessment Last Done: 07/04/25 02:02
*ED COVID-19 Vaccine History Last Done: 07/04/25 02:08
*ED Influenza Vaccine History Last Done: 07/04/25 02:08
GN-Keeizk-Gbolvlawvn Assessment Last Done: 07/04/25 02:36
ED- Cardiac Assessment Last Done: 07/04/25 02:36
ED- Pulmonary Assessment Last Done: 07/04/25 02:36
[2025-07-04] MEDS: ZOSYN 50 IV ×3 (04:50→17:01)
[2025-07-04] MEDS: MULTIVITAMIN 1011 MG IV (05:18)
[2025-07-04] MEDS: MULTIVITAMIN 1011 ML IV (05:18)
[2025-07-04] MEDS: ATIVAN 0.5 MG IV (05:20)
--- NOTE | 2025-07-04 05:25 | HPS.HSE ---
Family Physician
-
Family Physician: Rona Ureña
Chief Complaint
-
Bright red blood per rectum
History of Present Illness
This is a 80-year-old female who has past medical history significant for alcohol dependence, atrial fibrillation on anticoagulation, ulcerative colitis, irritable bowel syndrome, tobacco dependence and COPD/emphysema who presents to the emergency
department with diarrhea and bright red blood per rectum.
Patient reports that she was in usual state of health in the morning. Throughout the day she says she was well she was able to drive and accomplish her activities of daily living. She reports that she drinks her usual amount of alcohol which is 3
glasses of rum daily. Symptoms did not begin until around 8 PM. She said she suddenly felt weak and had to crawl to the bathroom. When she was crawling she started having continuous watery diarrhea. Initially it was nonbloody but then later that
she saw red-colored stooling materials. Discontinued for several sessions. She attempted to get up for but felt so weak and she crawled to the phone to call EMS.
He did not have any vomiting. She denies abdominal pain. She denies any nausea. She denies any recent melena or hematochezia. She denies any prior diarrhea compared to today. She has been compliant with IBD infusions.
She has not had any fevers or chills. No known sick contacts.
MRI of the abdomen was performed recently for cystic mass of the pancreas which shows no significant interval increase in size.
She was afebrile, blood pressure was 132/59 and pulse rate of 100. She did had a low-grade temp of 95.5 rectally. Oxygen saturation is 95% on room air.
WBC was 21 with left shift, hemoglobin is 14 and a plate count of 213. Sodium is 128 with potassium of 3.7 bicarb of 13 BUN 19 and creatinine 1.4 and a glucose of 101. LFTs shows a slight increase in AST and ALT. Bilirubin was unremarkable. ECG
shows junctional escape rhythm at 77 no atrial fibrillation. Blood gas was 7.08/[address] of the abdomen and pelvis shows hepatic steatosis, cholelithiasis without cholecystitis, no pancreatitis, no obstructing renal stone, there is an acute gastroenteritis and colitis without obstruction or perforation, no contrast examination within
the bowl to suggest active hemorrhage.
CT of the head without any acute disease. Chronic infarcts noted.
Medical History
Past Medical History
Past Medical History: Reports Arrhythmia (Atrial fibrillation), COPD (Will move to as needed but she does not use), HTN, Hypercholesterolemia and Other (Ulcerative colitis, carotid artery disease, alcohol dependence)
Past Surgical History: Reports Gynocological (Total abdominal hysterectomy and bilateral salpingo-oophorectomy 1983), Orthopedic (Right hip replacement) and Other (Right foot consists removal,)
Additional Past Surgical History:
Status post cardioversion
Status post ablation
Social History
Tobacco: Former Smoker
Alcohol: Daily
Drug: None
Personal: Single
Living: Alone
Employment: Retired
Family History
Family History: Not pertinent
Allergies / Home Medications
Allergies reflects when Allergies were last updated in [facility].
Home Medications with original date entered in [facility]
Allergy/Medication List:
Allergies
Allergy/AdvReac Type Severity Reaction Status Date / Time
sotalol (From Betapace) Allergy Rash Verified 07/04/25 02:08
tiotropium (From Spiriva Allergy Rash Verified 07/04/25 02:08
with HandiHaler)
Home Medications
atorvastatin 20 mg tablet 20 mg PO DAILY 11/01/19
denosumab 60 mg/mL subcutaneous syringe (Prolia) 60 mg SQ Q6M 11/01/19
duloxetine 60 mg capsule,delayed release 60 mg PO DAILY 11/01/19
timolol maleate 0.25 % eye drops 1 drp LEFT EYE DAILY 11/01/19
trazodone 150 mg tablet 150 mg PO HS 11/01/19
valacyclovir 500 mg tablet 1,000 mg PO DAILY 11/01/19
netarsudil 0.02 % eye drops (Rhopressa) 1 drp BOTH EYES HS ##0 11/02/19
apixaban 5 mg tablet (Eliquis) 5 mg PO BID #60 tabs 11/05/19
diltiazem HCl 180 mg capsule,extended release 24 hr 180 mg PO DAILY #30 caps 11/05/19
Multivitamin & Vitamin E 1 tab PO BID 12/27/23
budesonide 160 mcg-glycopyr 9 mcg-formot 4.8 mcg/actuation HFA inhaler (Breztri Aerosphere) 2 inh inhalation BID 12/27/23
levalbuterol tartrate 45 mcg/actuation aerosol inhaler 2 inh inhalation Q6H PRN COPD 12/27/23
lisinopril 20 mg tablet 20 mg PO DAILY 12/27/23
metoprolol succinate 25 mg tablet,extended release 24 hr 50 mg PO DAILY 12/27/23
pantoprazole 40 mg tablet,delayed release (Protonix) 40 mg PO DAILY #14 tabs 12/27/23
prednisolone acetate 1 % eye drops,suspension 1 drp LEFT EYE BID 12/27/23
vedolizumab 300 mg intravenous solution (Entyvio) 300 mg IV Q8W 12/27/23
Review of Systems
-
Constitutional: Reports No Symptoms
EENT: Reports No Symptoms
Respiratory: Reports No Symptoms
Cardiac: Reports No Symptoms
Abdomen/GI: Reports Diarrhea and Bloody Stools
: Reports No Symptoms
Musculoskeletal: Reports No Symptoms
Skin: Reports No Symptoms
Neurological: Reports Dizzy
Endocrine: Reports No Symptoms
Hematologic/Lymphatic: Reports No Symptoms
Psych: Reports No Symptoms
Physical Exam
Vital Signs
Vital Signs
Pulse Resp BP Pulse Ox
100 16 132/59 94
07/04/25 04:45 07/04/25 04:45 07/04/25 04:45 07/04/25 05:00
Physical Exam
General: No Apparent Distress
HEENT: NormoCephalic, Anicteric, Moist mucous membranes and PERRLA; No Oxygen
Respiratory: Clear and Decreased Breath Sounds
Cardiac: S1/S2, Irregular Rhythm and Tachycardia
Breast: Deferred by me
GI: Soft, Non Tender, Non Distended and Normal Bowel Sounds
Rectal: Brown, Red and Hem Positive
Genito-urinary: Deferred by me
Musculoskeletal: No Clubbing, No Cyanosis and No Edema
Skin: Warm
Neuro: Alert, Nonfocal/grossly intact and Tremors
Laboratory Results
-
07/04/25 02:10
07/04/25 02:10
Laboratory Results
PT 17.8 Sec (11.4-14.6) H 07/04/25 02:10
INR 1.41 07/04/25 02:10
APTT 28.3 Sec (23.4-35.0) 07/04/25 02:10
Lactic Acid 6.8 mmol/L (0.7-2.0) H* 07/04/25 03:09
Total Bilirubin 1.0 mg/dl (0.2-1.3) 07/04/25 02:10
AST 118 U/L (14-36) H 07/04/25 02:10
ALT 55 U/L (0-35) H 07/04/25 02:10
Alkaline Phosphatase 285 U/L (38-126) H 07/04/25 02:10
Data Reviewed
-
CT Scan: Report Reviewed by me
Medical Tests (Nuc Med, Echo, EKG etc): Image Personally Visualized and interpreted
Lab Data: Labs Reviewed by me
Old Records: Reviewed
Impression/Plan
-
IMPRESSION:
80-year-old female with past medical history significant for ulcerative colitis and was on antiviral, atrial fibrillation on anticoagulation, emphysema, alcohol dependence, hypertension, GERD presenting to the emergency department with dizziness and
diarrhea that started within the last 24 hours and there is associated bright red blood per rectum. She has no nausea or vomiting. She has not seen any recent melena. She is hemodynamically stable on arrival with a blood pressure of 130/60 and
she was tachycardic to 100. Labs were notable for a white count of 21.7, sodium of 128, bicarb of 13 with a anion gap metabolic acidosis and a lactic acid of 6. CT of the abdomen and pelvis shows acute gastroenteritis and colitis without
obstruction or perforation and no active bleed. She had a colonoscopy last year showing diverticulosis, polyps but no colitis and no evidence of inflammatory bowel disease on the biopsy.
PLAN:
Diarrhea -infectious gastroenteritis/colitis more likely rather than inflammatory
� Admit to IMU
� Stool cultures, C. difficile pending
�Check fecal calprotectin, norovirus, covid
� Will continue IV Zosyn for now
�Continue with fluid resuscitation as below
GI bleed�infectious diarrhea on Eliquis likely source of this bright red blood per rectum. Patient does have diverticulosis on prior colonoscopy and we cannot rule out a diverticular bleed.
� Type and screen for now
� Trend H&H
� Fluid resuscitation as above
� Continue PPI as IV daily
� GI consultation
Anion gap metabolic acidosis�anion gap metabolic acidosis all appears to be stemming from the lactic acidosis. Suspect alcoholic ketoacidosis as a primary etiology of this lactic acidosis but cannot rule out sepsis entirely.
� IV fluids with D5 normal saline for now
� Trend lactic acid
CAIT
- Fluid resuscitation as above
Atrial fibrillation
- Hold Eliquis
� Continue metoprolol succinate with hold parameters
- Holding lisinopril
Alcohol dependence alcohol level of 56 on arrival currently without withdrawal
� Msas protocol
� Thiamine, folate, D5 normal saline
Emphysema
- Continue home as needed albuterol
� Continue inhaled steroids and tiotropium as well as inhaled long-acting beta agonist
DVT prophy�SCDs for now
CODE STATUS�full code
[2025-07-04 06:45] LABS: COVID-19 Antigen Negative (Negative)
--- NOTE | 2025-07-04 08:35 | CM ---
Chart reviewed and spoke with patient at ED bedside
Lives alone in a [place] home community
[employer] independent with ADLs and using cane for ambulation outside
Drives herself
Son Zac is in [place] and per patient he is supportive
Patient reports that her friends and neighbors are supportive and would be able to provide transportation at the time of DC if needed
PCP Dr. Rona Ureña
RX plan yes
Pharmacy [facility] on [facility]
no hx of VN nor SNF
DCP is to return home; friend/neighbor can provide transportation
CM will continue to follow up for any dcp needs
[2025-07-04] MEDS: ATIVAN 1 MG PO ×3 (10:05→16:35)
[2025-07-04] MEDS: CARDIZEM CD 180 MG PO (10:05)
[2025-07-04] MEDS: LIPITOR 20 MG PO (10:05)
[2025-07-04] MEDS: TOPROL XL 50 MG PO (10:06)
[2025-07-04] MEDS: CYMBALTA DELAYED RELEASE 60 MG PO (10:06)
[2025-07-04] MEDS: THIAMINE INJECTION 200 MG IV ×2 (10:06→21:03)
[2025-07-04] MEDS: D5/0.9% SODIUM CHLORIDE 1000 IV (10:08)
[2025-07-04] MEDS: FOLVITE 1 MG PO (10:08)
[2025-07-04] MEDS: VALTREX 500 MG PO (11:09)
--- NOTE | 2025-07-04 11:37 | CON.GI ---
Addendum entered and electronically signed by Gris Hooper Do, MD 07/04/25 16:07:
I saw and evaluated the patient. I reviewed the resident�s note and agree with findings and plan as documented in the resident�s note.
Layla is an 80yo W known to myself for h/o UC pancolitis on entyvio last 07/01/25, ETOH use, and afib on eliquis who was admitted for weakness and found down. She tells me that for days she has had poor appetite and decrease oral intake. She lives
alone and not wanting ot stop ETOH intake. She then was dizzy on floor and then had bloody diarrhea with abd pain. Vitals HR 110 BP 123/64 today BP 80s. chronically ill appearing. diffuse TTP. Labs reviewed. CTAP diffuse enterocolitis, no
active GIB
Impressions
- Weakness/hypotension
- Bloody diarrhea
suspect ischemic colitis. less likely UC flare up given recent Cscope in remission
- Mild leukocytosis
- Ulcerative pancolitis diagnosed >20yrs ago on entyvio Q8wks
- Elevated LFTs
- Hepatic steatosis
- Pancreatic cysts
MRI 05/2025 stable size
- COPD
- Afib on AC
Recommendations
- Check stool studies for infection
- Fecal calprotectin pending
- Add ESR/CRP
- c/w abx
- Optimize BP
- ETOH cessation
- Hold anticoagulation
- CLD adv as tolerates
- If does not improve consider flex sigm
Will follow with you
Original Note:
Consultation
-
Date/Time Consultation Requested: 07/04/25 07:25
Date/Time Consultation Performed: 07/04/25 08:00
Requesting Provider: Dr. Anibal Hills
Performing Provider: Dr. Gris Caballero
Reason for Consultation: h/o ulcerative colitis coming in w/ diarrhea, rectla bleed
Medical History
Chief Complaint / HPI
Chief Complaint: bloody diarrhea
History of Present Illness:
80yoF PMH AUD, afib on eliquis, COPD, ulcerative colitis and IBS presenting with acute onset of diarrhea and blood in her stool.
Pt described eating dinner last night with acute onset of immense diarrhea that eventually she noted had blood on the toilet seat. She described episodes of fecal incontinence due to the urgency of the BM. She reports diffuse abdominal pain, throat
pain, and bloating. She reports being so weak yesterday that she could not walk and had to crawl to the bathroom.
Pt receives Etyvio infusions every [address] Caballero, last one being last week. Pt reports usual change in bowels before the infusion with worsened diarrhea the weak before and rebound constipation after. She explained that she has been
constipated this past week. Denies changes in diet, eating raw vegetables or meat recently. Last night for dinner prior to the episode she ate spagetti and meatballs that were fully cooked.
Past Medical History
Past Medical History: Arrhythmias (afib ), COPD and Other (alcohol use disorder, ulcerative colitis)
Past Surgical History: None (denies abdominal surgery)
Social History
Tobacco: Former Smoker (quit 21 years ago)
Alcohol: Daily (reported 3 glasses a day)
Drug: None
Allergies / Home Medications
Allergy/AdvReac Type Severity Reaction Status Date / Time
sotalol (From Betapace) Allergy Rash Verified 07/04/25 02:08
tiotropium (From Spiriva Allergy Rash Verified 07/04/25 02:08
with HandiHaler)
�Medication �Instructions �Recorded
atorvastatin 20 mg tablet 20 mg PO DAILY High Cholesterol 11/01/19
denosumab 60 mg/mL subcutaneous 60 mg SQ Q6M Osteoporosis 11/01/19
syringe (Prolia)
duloxetine 60 mg capsule,delayed 60 mg PO DAILY Mental 11/01/19
release Health/Anxiety
timolol maleate 0.25 % eye drops 1 drp LEFT EYE DAILY Eye Condition 11/01/19
trazodone 150 mg tablet 150 mg PO HS Sleep 11/01/19
valacyclovir 500 mg tablet 1,000 mg PO DAILY Infection 11/01/19
netarsudil 0.02 % eye drops 1 drp BOTH EYES HS Eye Condition 11/02/19
(Rhopressa) ##0
apixaban 5 mg tablet (Eliquis) 5 mg PO BID #60 tabs 11/05/19
diltiazem HCl 180 mg 180 mg PO DAILY #30 caps 11/05/19
capsule,extended release 24 hr
Multivitamin & Vitamin E 1 tab PO BID Supplement 12/27/23
budesonide 160 mcg-glycopyr 9 2 inh inhalation BID 12/27/23
mcg-formot 4.8 mcg/actuation HFA Lung/Breathing Issues
inhaler (Breztri Aerosphere)
levalbuterol tartrate 45 2 inh inhalation Q6H PRN COPD 12/27/23
mcg/actuation aerosol inhaler
lisinopril 20 mg tablet 20 mg PO DAILY Blood Pressure 12/27/23
metoprolol succinate 25 mg 50 mg PO DAILY Blood Pressure 12/27/23
tablet,extended release 24 hr
pantoprazole 40 mg tablet,delayed 40 mg PO DAILY #14 tabs 12/27/23
release (Protonix)
prednisolone acetate 1 % eye 1 drp LEFT EYE BID Eye Condition 12/27/23
drops,suspension
vedolizumab 300 mg intravenous 300 mg IV Q8W Gastrointestinal 12/27/23
solution (Entyvio) Issue
Review of Systems
Vital Signs
Temp Pulse Resp BP Pulse Ox
98.0 F 131 27 154/75 95
07/04/25 11:00 07/04/25 10:06 07/04/25 07:45 07/04/25 10:06 07/04/25 07:51
Physical Exam
Exam
General: Pain and Fever
HEENT: Normocephalic, Anicteric and Moist Mucous Membranes
Respiratory: Clear and Non Labored Respirations
Cardiac: S1/S2
GI: Soft, Tender (diffuse) and Distended
Skin: Warm and Dry
Neuro: AO x 3 and Nonfocal/Grossly Intact
Psych: Calm
Results
WBC 21.7 10^3/uL (4.8-10.8) H 07/04/25 02:10
Hgb 14.3 g/dL (12.0-16.0) 07/04/25 02:10
Hct 40.3 % (37.0-47.0) 07/04/25 02:10
MCV 102.5 fL (81.0-99.0) H 07/04/25 02:10
Plt Count 213 10^3/uL (130-400) 07/04/25 02:10
Absolute Neuts (auto) 19.0 10^3/uL (1.4-6.5) H 07/04/25 02:10
PT 17.8 Sec (11.4-14.6) H 07/04/25 02:10
INR 1.41 07/04/25 02:10
APTT 28.3 Sec (23.4-35.0) 07/04/25 02:10
Sodium 128 mmol/L (135-145) L 07/04/25 02:10
Potassium 3.7 mmol/L (3.5-5.1) 07/04/25 02:10
Chloride 100 mmol/L (98-107) 07/04/25 02:10
Carbon Dioxide 13 mmol/L (22-30) L* 07/04/25 02:10
BUN 19 mg/dl (7-17) H 07/04/25 02:10
Creatinine 1.4 mg/dL (0.6-1.0) H 07/04/25 02:10
Calcium 8.7 mg/dl (8.4-10.2) 07/04/25 02:10
Total Bilirubin 1.0 mg/dl (0.2-1.3) 07/04/25 02:10
AST 118 U/L (14-36) H 07/04/25 02:10
ALT 55 U/L (0-35) H 07/04/25 02:10
Alkaline Phosphatase 285 U/L (38-126) H 07/04/25 02:10
Diagnostic Image Results: Ct ab
IMPRESSION:
1. No overt CTA evidence for active GI bleed.
2. Suspect diffuse enterocolitis.
3. No abdominal aortic aneurysm or dissection.
4. Additional stable chronic findings as described.
Prior GI Procedures:
EGD:
Colonoscopy: 06/22/24
Impression: - Non-bleeding internal hemorrhoids.
- Diverticulosis in the sigmoid colon and in the
descending colon.
- The examined portion of the ileum was normal.
Biopsied.
- One 3 mm polyp in the rectum, removed with a jumbo
cold forceps. Resected and retrieved.
- Four biopsies were obtained in the rectum, in the
sigmoid colon, in the descending colon, in the
transverse colon, in the ascending colon and in the
cecum.
Assessment / Plan
-
80yoF PMH AUD, afib on eilquis, ulcerative colitis, COPD presenting with acute onset of diarrhea and blood in her stool.
Ms. Rios was in her usual state of health when she began having severe diarrhea with urgency, abdominal pain, bloating, and weakness. She reports noticing after multiple BM that she had blood on the toilet seat but could not quantify the blood.
She had her entyvoi infusion last week with reported constipation this week. She has an elevated WBC with tachycardia and a sore throat concerning for infectious etiology colitis vs diverticulitis in setting of known diverticulosis on colonoscopy 1
year ago. Elevated LFTs in setting of sepsis vs chronic alcohol use
#diarrhea with BRBPR
- Trend H and H. transfuse hg<7
- Infectious panel pending. Stool cultures, norovirus negative, c diff negative, shiga and salmonella pending
- Holding colonoscopy at current time
PENDING ATTENDING RECOMMENDATIONS
-
-
Thank you for consultation and allowing me to participate in the patient's care. Please call the cold roll packer sheet iron GI physician during the after hours with any questions or concerns.
[2025-07-04] MEDS: VENTOLIN NEBULES 2.5 MG INH (12:19)
--- NOTE | 2025-07-04 12:52 | W.PN.UPDATE ---
Update Note
Progress Note Update
patient admitted 5 30 AM with colitis with Lower GI bleed - started on IVF, IV abx with GI Consulted
C. Diff negative; pending additional stool studies
at present, diarrhea continues
patient also receiving IV Ativan for MSAS of 5 recently
Assessment:
Acute colitis with lower GI bleed, exacerbated by Eliquis
- C. Diff negative; other stool studies (including calprotectin) pending
- IVF
- IV Zosyn
- follow Hb; continue PPI Daily
- follow GI recs
Lactic acidosis possibly related to ETOH ketoacidosis vs sepsis (colitis with lactic acidosis)
- repeat BMP pending; may need bicarbonate IVF
- lactic acidosis resolved
CAIT, likely pre-renal from hypovolemia
acute hyponatremia
- continue IVF; repeat labs
Parox A. Fib
- holding Eliquis
- continue BB
Essential HTN
- hold HERI
ETOH Dependance, with ETOH level 56 on admission
- continue MSAS Protocol
- cessation counselling provided
chronic Emphysema
- Continue home as needed albuterol nebs
- Continue inhaled steroids and tiotropium as well as inhaled long-acting beta agonist
DVT ppx: SCDs
Code: Full
[2025-07-04 13:34] LABS: Hematocrit 33.7 % (37.0-47.0); Hemoglobin 11.5 g/dL (12.0-16.0); Mean Corp Hgb Conc. 34.1 g/dL (33.0-37.0); Mean Corpuscular Volume 105.0 fL (81.0-99.0); Platelet Count 152 10^3/uL (130-400); Red Cell Dist. Width 12.7 % (11.5-14.5)
--- NOTE | 2025-07-04 13:42 | PTCARENOTE ---
Pt admitted from ED with GIB, watery diarrhea, weakness. Pt with multiple areas of bruising and skin tears from falls at home. Also reports that she had to crawl to the bathroom due to weakness and that's why she has so many injuries. Pt very
tremulous, tachy and SOB. MD at bedside. MSAS 4-5. See MAR. Oriented to unit.
[2025-07-04 13:45] LABS: ALT (SGPT) 43 U/L (0-35); AST (SGOT) 91 U/L (14-36); Albumin 3.0 g/dl (3.5-5.0); Alkaline Phosphatase 177 U/L (38-126); Blood Urea Nitrogen 21 mg/dl (7-17); Calcium 7.0 mg/dl (8.4-10.2); Carbon Dioxide 14 mmol/L (22-30); Chloride 105 mmol/L (98-107); Estimated Creatinine Clearance 27 ml/min; Glucose 142 mg/dl (70-99); Potassium 3.8 mmol/L (3.5-5.1); Sodium 130 mmol/L (135-145); Total Protein 5.2 g/dl (6.3-8.2); eGFR 41.57
[2025-07-04 17:14] LABS: C-Reactive Protein 43.20 mg/L (0.0-10.00)
[2025-07-04] MEDS: SODIUM BICARBONATE 1150 MEQ IV (18:19)
[2025-07-04] MEDS: D5/0.9% SODIUM CHLORIDE IV (18:24)
--- NOTE | 2025-07-04 20:29 | PTCARENOTE ---
Assumed care of pt from dayshift RN. pt answers all orientation questions, forgetful at times. restless but easily redirected. MSAS maintained per orders. see work list intervention for scoring and assessment. sinus tach on monitor. HR 105. satting
95% on RA. assessment as documented. call light in reach.
[2025-07-04] MEDS: PRED FORTE 1% EYE DROPS 1 DROP LEFT EYE (21:03)
[2025-07-04] MEDS: NSS (PRESERVATIVE FREE) 10 ML IV (21:03)
[2025-07-04] MEDS: DESYREL 150 MG PO (22:47)
[2025-07-04] MEDS: NON-FORMULARY ITEM 1 DROP LEFT EYE (22:48)
[2025-07-05] VITALS (12 sets, daily range): BP systolic 100–155; BP diastolic 53–75; BMI 24.2
[2025-07-05] MEDS: ZOSYN 50 IV ×4 (00:46→18:57)
[2025-07-05 05:35] LABS: Hematocrit 28.8 % (37.0-47.0); Hemoglobin 10.6 g/dL (12.0-16.0); Mean Corp Hgb Conc. 36.8 g/dL (33.0-37.0); Mean Corpuscular Volume 100.3 fL (81.0-99.0); Platelet Count 141 10^3/uL (130-400); Red Cell Dist. Width 12.4 % (11.5-14.5)
[2025-07-05 06:09] LABS: Hematocrit 30.1 % (37.0-47.0); Hemoglobin 10.9 g/dL (12.0-16.0); Mean Corp Hgb Conc. 36.2 g/dL (33.0-37.0); Mean Corpuscular Volume 99.0 fL (81.0-99.0); Platelet Count 143 10^3/uL (130-400); Red Cell Dist. Width 12.4 % (11.5-14.5)
[2025-07-05 06:37] LABS: Hepatitis C Antibody Negative (Negative)
[2025-07-05 06:47] LABS: ALT (SGPT) 38 U/L (0-35); AST (SGOT) 60 U/L (14-36); Albumin 2.8 g/dl (3.5-5.0); Alkaline Phosphatase 138 U/L (38-126); Blood Urea Nitrogen 16 mg/dl (7-17); Calcium 6.8 mg/dl (8.4-10.2); Carbon Dioxide 21 mmol/L (22-30); Chloride 99 mmol/L (98-107); Estimated Creatinine Clearance 35 ml/min; Glucose 118 mg/dl (70-99); Potassium 3.6 mmol/L (3.5-5.1); Sodium 124 mmol/L (135-145); Total Protein 5.2 g/dl (6.3-8.2); eGFR 56.95
--- NOTE | 2025-07-05 07:53 | W.PN.GI.CBS2 ---
Today's Communication / Plan
-
PENDING ATTENDING RECOMMENDATIONS
Continue abx. Likely infectious etiology
Assessment / Plan
-
80yoF PMH AUD, afib on eilquis, ulcerative colitis, COPD presenting with acute onset of diarrhea and blood in her stool.
Ms. Rios was in her usual state of health when she began having severe diarrhea with urgency, abdominal pain, bloating, and weakness. She reports noticing after multiple BM that she had blood on the toilet seat but could not quantify the blood.
She had her entyvoi infusion last week with reported constipation this week. She has an elevated WBC with tachycardia and a sore throat concerning for infectious etiology colitis vs diverticulitis in setting of known diverticulosis on colonoscopy 1
year ago. Elevated LFTs in setting of sepsis vs chronic alcohol use
Today, pt reports continued fecal urgency and loose stools with abdominal tenderness and distention similar to yesterday. Her most recent stools have been brown without evidence of blood. BC gram neg bacilli. LFTs downtrending. Symptoms seem more
likely infectious vs colitis flare due to acuity. Plan to continue monitoring on antibiotics for GI symptoms improvement.
#diarrhea with BRBPR
- Trend H and H. transfuse hg<7
- Infectious panel pending. Stool cultures, norovirus negative, c diff negative, shiga and salmonella pending
- Holding colonoscopy at current time
- BC gram neg bacilli. Continue abx
Subjective
Subjective
Date of Service: July 05, 2025
Pt reports still feeling ill this morning with abdominal tenderness and distention. She reports that her BM are no longer bloody but continue to be loose with urgency.
Objective
Data Reviewed
Laboratory Data:
Laboratory Results
07/05/25 05:58
07/05/25 05:58
Laboratory Results
PT 17.8 Sec (11.4-14.6) H 07/04/25 02:10
INR 1.41 07/04/25 02:10
APTT 28.3 Sec (23.4-35.0) 07/04/25 02:10
Total Bilirubin 0.7 mg/dl (0.2-1.3) 07/05/25 05:58
AST 60 U/L (14-36) H 07/05/25 05:58
ALT 38 U/L (0-35) H 07/05/25 05:58
Alkaline Phosphatase 138 U/L (38-126) H 07/05/25 05:58
Vital Signs and I&O:
Vital Signs
Temp Pulse Resp BP Pulse Ox
99.5 F 95 26 121/60 96
07/05/25 03:13 07/05/25 06:00 07/05/25 06:00 07/05/25 06:00 07/05/25 06:00
Physical Exam
Physical Exam
HEENT: Anicteric and Moist mucous membranes
Cardiology: Normal Sinus Rhythm
Pulmonary: Clear
GI: Soft, Distended (nontympanic) and Tender (mildly)
Extremities: No Edema and Other (bruises across bilateral arms)
Neuro: Non Focal
[2025-07-05] MEDS: CARDIZEM CD 180 MG PO (08:00)
[2025-07-05] MEDS: VALTREX 500 MG PO (08:00)
[2025-07-05] MEDS: CALCIUM GLUCONATE 100 IV (08:00)
[2025-07-05] MEDS: CYMBALTA DELAYED RELEASE 60 MG PO (08:00)
[2025-07-05] MEDS: LIPITOR 20 MG PO (08:00)
[2025-07-05] MEDS: THIAMINE INJECTION 200 MG IV ×2 (08:01→21:43)
[2025-07-05] MEDS: FOLVITE 1 MG PO (08:01)
[2025-07-05] MEDS: NSS (PRESERVATIVE FREE) 10 ML IV (08:01)
[2025-07-05] MEDS: TOPROL XL 50 MG PO (08:01)
[2025-07-05] MEDS: PROTONIX IV 40 MG IV (08:02)
[2025-07-05] MEDS: PRED FORTE 1% EYE DROPS 1 DROP LEFT EYE ×2 (08:03→21:43)
[2025-07-05] MEDS: TIMOPTIC 0.25% OPHTHALMIC SOLUTION 1 DROP LEFT EYE (08:03)
[2025-07-05] MEDS: VENTOLIN NEBULES 2.5 MG INH ×2 (11:30→16:42)
--- NOTE | 2025-07-05 14:15 | W.PN.HOSP.TC ---
Today's Communication/Plan
-
see note
Assessment / Plan
Assessment / Plan
Acute bloody diarrhea
Suspected ischemic versus infectious
-CT abdomen pelvis angio with without IV contrast showing patent celiac/SMA. Diffuse enterocolitis suspected
-C. difficile negative. Final stool bacterial culture report pending
-Blood culture growing E. coli and suspecting of translocation of gut bacteria
-As patient had blood in the stool GI feels this is likely ischemic in nature.
-Stool calprotectin results is pending.
-Maintain on empiric antibiotic Zosyn, will adjust based on clinical response.
-Maintain on Protonix 40 mg daily.
E-coli bacteremia
- 1 set of blood culture growing E. coli, await further susceptibility
- Currently on Zosyn continue
Alcohol use disorder
- Patient drinks 3 to 4 glasses of wine on daily basis, denies of having previous alcohol with
- Blood alcohol level of 56 at admission
- Maintain on MSAS and as needed Ativan protocol
Hyponatremia
- Sodium down trended to 124 today. Patient is symptomatic
- Urine electrolytes check ordered
- Fluid restriction ordered
Anion gap metabolic acidosis
Lactic acidosis
- LA of 6.8 at admission , improved to 1.1 post IVF
- Was provided bicarb IVF, monitor
CAIT
- resolved post IVF
Atrial fibrillation
- Resume Eliquis in 24 to 48 hours
- Continue metoprolol succinate with hold parameters
- Holding lisinopril
Emphysema
- Continue home as needed albuterol
� Continue inhaled steroids and tiotropium as well as inhaled long-acting beta agonist
DVT prophy�SCDs for now
CODE STATUS�full code
Care plan disussed with GI
Total time spent ; 54 mins
Anticipated Discharge: > 48 hours
Subjective/Interval History
-
Date of Service: July 05, 2025
Continues to have diarrhea
No reported black or blood in stool
Some abdominal discomfort
Afebrile
Objective Data
-
Labs:
Laboratory Results
07/05/25 07/05/25
04:51 05:58
WBC 10.7 11.6 H
Hgb 10.6 L 10.9 L
Hct 28.8 L 30.1 L
Plt Count 141 143
Sodium Cancelled 124 L
Potassium Cancelled 3.6
Chloride Cancelled 99
Carbon Dioxide Cancelled 21 L
BUN Cancelled 16
Creatinine Cancelled 1.0
Glucose Cancelled 118 H
Calcium Cancelled 6.8 L*
Total Bilirubin Cancelled 0.7
AST Cancelled 60 H
ALT Cancelled 38 H
Alkaline Phosphatase Cancelled 138 H
Vital Signs:
Vital Signs
Temp Pulse Resp BP Pulse Ox
98.5 F 79 20 121/60 95
07/05/25 07:30 07/05/25 11:33 07/05/25 11:33 07/05/25 06:00 07/05/25 11:33
Review of Systems
-
Respiratory: Reports No Symptoms
Cardiac: Reports No Symptoms
Abdomen/GI: Reports Abdominal Pain; Denies Nausea or Vomiting
Physical Exam
-
General: Comfortable
HEENT: Negative Oxygen
Respiratory: Clear to Auscultation
Cardiac: Regular Rhythm and S1/S2; Negative Murmur or Rub
GI: Soft, Normal Bowel Sounds and Tender; Negative Distended
Musculoskeletal: No Edema
Neuro: Awake, Alert, Oriented, No Motor Deficits and Nonfocal/Grossly Intact
Psych: Calm
--- NOTE | 2025-07-05 16:07 | CM ---
F/U: Patient still having diarrhea, no reported black or blood in stool, and some abdominal discomfort, and PT/OT no recommendations although patient is independent prior. Case Management to follow up on needs. PLAN: Anticipate Home No Needs vs. VN.
[2025-07-05] MEDS: NSS (PRESERVATIVE FREE) IV (21:43)
[2025-07-05] MEDS: DESYREL 150 MG PO (21:44)
[2025-07-05] MEDS: NON-FORMULARY ITEM 1 DROP LEFT EYE (21:44)
[2025-07-05] MEDS: NON-FORMULARY ITEM INH ×4 (23:40→23:41)
[2025-07-06] VITALS (10 sets, daily range): BP systolic 114–135; BP diastolic 50–71; BMI 24.2
[2025-07-06] MEDS: ZOSYN 50 IV ×4 (00:32→18:09)
--- NOTE | 2025-07-06 03:28 | PTCARENOTE ---
Pt appearing to get sleep over night. Pt respirations even unlabored. spo2 95% RA. Pt family brought in own inhaler, sent to pharmacy for label. 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 Assessment care and vitals as charted.
[2025-07-06 06:29] LABS: Hematocrit 34.5 % (37.0-47.0); Hemoglobin 12.3 g/dL (12.0-16.0); Mean Corp Hgb Conc. 35.7 g/dL (33.0-37.0); Mean Corpuscular Volume 104.9 fL (81.0-99.0); Platelet Count 159 10^3/uL (130-400); Red Cell Dist. Width 12.2 % (11.5-14.5)
--- NOTE | 2025-07-06 06:49 | W.PN.GI.CBS2 ---
Today's Communication / Plan
-
Improving abdominal pain and without any further bloody stools, still suspicious for resolving ischemic colitis. Remains on IV Zosyn given E coli bacteremia secondary to gut translocation. No plans for flex-sig and may advance diet as tolerated.
Rest as below. GI will continue to follow.
Assessment / Plan
-
Ms. Rios is a 80 y.o female with past medical history significant for ulcerative pancolitis (in deep remission, on Entyvio), A Fib (on eliquis) and EtOH use who initially presented with abdominal pain and bloody stools with acute onset of
symptoms. Found to have leukocytosis and CT imaging concerning for diffuse enterocolitis without any evidence of active GI bleeding. Found to be hypotensive on arrival as well. Previous colonoscopy back on 06/2024 and in deep remission in regards to
her UC as patient follows closely with Dr. Caballero and compliance with her Entyvio, last dose on 06/2025. Clinically, suspect ischemic colitis given bloody stools and abdominal pain and previous low BPs versus infectious colitis. Much less likely UC
flare or other concern for CMV colitis. Currently, she reports improving symptoms although still with abdominal discomfort however without any further bloody stools and having brown bowel movements. Now with recent blood cultures (1 out of 2)
07/04/25 with E coli bacteremia concerning for gut translocation. Recommend ongoing IV Zosyn. Fecal calprotectin has been ordered however would still suspect to be elevated in setting of colitis. Recommend close monitoring of serial Hgb and a/c
continues to remain on hold. Would defer any plans for a Flex-Sig at this time and agree with ongoing supportive care.
#Bloody Diarrhea- resolved suspicious for
#Ischemic Colitis versus #Infectious Colitis
#C/f Enterocolitis on CT Imaging
#E Coli Bacteremia 2/2 Translocation
#Hx of UC in Deep Remission (On Entyvio)
#Weakness/Hypotension
#Alcohol Use Disorder
#Hx of Pancreatic Cysts
#A Fib (on a/c) #COPD
Recommendations:
- Advance to full liquids, if tolerating may advance to low-fiber, low-residue diet as tolerated
- Trend Hgb with serial CBC, transfuse as needed
- Continue IV Zosyn, monitor cultures and susceptibility testing
- C Diff and Norovirus PCR (-). Pending rest of stool culture/studies. Fecal calprotectin pending although still would be confounded as would be elevated in setting of acute inflammation
- No plans for Flex-Sig at this time given resolution of prior bloody diarrhea and thus not c/w UC or other c/f CMV colitis
- Given stable H/h and without any further bloody stools, reasonable to restart anticoagulation (on eliquis)
- Pain control and IV anti-emetic PRN
- Discussed importance of EtOH cessation
- Rest of care as per primary team
GI will continue to follow. Please call with any questions or concerns.
Subjective
Subjective
Date of Service: July 06, 2025
- Reported having brown stools without any further bloody bowel movements
- Remains on IV Zosyn, blood culture 1/2 with E coli from 07/04, pending susceptibility testing
- Otherwise, no acute events overnight
Resting comfortably and admits improving abdominal pain. Continues to deny any further bloody stools or rectal bleeding since admission. Had two looser BMs overnight and passing flatus. No other nausea or vomiting. Hungry and hoping for more solid
food this AM. Otherwise, no other fevers, chills, night sweats or other constitutional symptoms.
Objective
Data Reviewed
Laboratory Data:
Laboratory Results
07/06/25 06:12
Laboratory Results
PT 17.8 Sec (11.4-14.6) H 07/04/25 02:10
INR 1.41 07/04/25 02:10
APTT 28.3 Sec (23.4-35.0) 07/04/25 02:10
Total Bilirubin 0.7 mg/dl (0.2-1.3) 07/05/25 05:58
AST 60 U/L (14-36) H 07/05/25 05:58
ALT 38 U/L (0-35) H 07/05/25 05:58
Alkaline Phosphatase 138 U/L (38-126) H 07/05/25 05:58
Vital Signs and I&O:
Vital Signs
Temp Pulse Resp BP Pulse Ox
98.0 F 82 15 132/56 93
07/06/25 03:00 07/06/25 06:29 07/06/25 06:29 07/06/25 06:29 07/06/25 04:00
I&O
07/04/25 07/05/25 07/06/25
06:59 06:59 06:59
Intake Total 1160 / 1160
Balance 1160 / 1160
Physical Exam
Physical Exam
HEENT: Anicteric and Moist mucous membranes
Cardiology: Other (RR on tele)
Pulmonary: Other (Normal WOB on room air)
GI: Soft, Distended (Mild distension) and Non Tender
Extremities: No Edema and Warm
Neuro: Non Focal
[2025-07-06 07:02] LABS: ALT (SGPT) 40 U/L (0-35); AST (SGOT) 44 U/L (14-36); Albumin 3.4 g/dl (3.5-5.0); Alkaline Phosphatase 152 U/L (38-126); Blood Urea Nitrogen 13 mg/dl (7-17); Calcium 8.2 mg/dl (8.4-10.2); Carbon Dioxide 23 mmol/L (22-30); Chloride 96 mmol/L (98-107); Estimated Creatinine Clearance 35 ml/min; Glucose 111 mg/dl (70-99); Potassium 4.0 mmol/L (3.5-5.1); Sodium 124 mmol/L (135-145); Total Protein 5.9 g/dl (6.3-8.2); eGFR 56.95
[2025-07-06] MEDS: NON-FORMULARY ITEM 2 INH INH ×2 (07:38→17:50)
[2025-07-06] MEDS: VENTOLIN NEBULES 2.5 MG INH (07:57)
[2025-07-06] MEDS: THIAMINE INJECTION 200 MG IV ×2 (08:17→20:18)
[2025-07-06] MEDS: CYMBALTA DELAYED RELEASE 60 MG PO (08:17)
[2025-07-06] MEDS: LIPITOR 20 MG PO (08:17)
[2025-07-06] MEDS: VALTREX 500 MG PO (08:17)
[2025-07-06] MEDS: PROTONIX 40 MG PO (08:17)
[2025-07-06] MEDS: TIMOPTIC 0.25% OPHTHALMIC SOLUTION 1 DROP LEFT EYE (08:18)
[2025-07-06] MEDS: PRED FORTE 1% EYE DROPS 1 DROP LEFT EYE ×2 (08:18→20:19)
[2025-07-06] MEDS: FOLVITE 1 MG PO (08:19)
[2025-07-06] MEDS: CARDIZEM CD 180 MG PO (08:19)
[2025-07-06] MEDS: TOPROL XL 50 MG PO (08:19)
[2025-07-06] MEDS: NSS (PRESERVATIVE FREE) IV ×2 (08:19→20:03)
[2025-07-06] MEDS: LASIX 20 MG IV (09:50)
--- NOTE | 2025-07-06 11:37 | PTCARENOTE ---
Patient AOx3. B/L [place]. On RA with SpO2 greater than 92%. Occasional cough. NSR on monitor. 2 loose brown movements. Urgency when it comes to bowel and bladder. Tolerating oral diet. Call reynaga within reach, bed in lowest position, and bed of wheels
locked.
--- NOTE | 2025-07-06 11:49 | PTCARENOTE ---
Patient transferred to by patient transport. Patient belongings transported with patient. VSS.
--- NOTE | 2025-07-06 12:20 | PTCARENOTE ---
Received pt from IMU via stretcher, stretcher placed next to bed, pt ambulated to bed x1 with single point cane from home. Assessed and oriented to room. AAOx3. Pt reported soreness in abdomen. Call reynaga within close reach. Will continue to monitor.
--- NOTE | 2025-07-06 12:35 | W.PN.HOSP.TC ---
Today's Communication/Plan
-
see note
Assessment / Plan
Assessment / Plan
Acute bloody diarrhea
Suspected ischemic versus infectious
-CT abdomen pelvis angio with without IV contrast showing patent celiac/SMA. Diffuse enterocolitis suspected
-C. difficile negative. Final stool bacterial culture report pending
-Blood culture growing E. coli and suspecting of translocation of gut bacteria
-As patient had blood in the stool GI feels this is likely ischemic in nature.
-Stool calprotectin results is pending.
-Maintain on empiric antibiotic Zosyn, will adjust based on clinical response.
-Maintain on Protonix 40 mg daily.
-Plan to resume Eliquis from tomorrow morning although reported bright red blood in the stool again today. Discussed with GI for possible need of flex sig if continues to have blood in stool.
E-coli bacteremia
- 1 set of blood culture growing E. coli, await further susceptibility
- Currently on Zosyn continue
Alcohol use disorder
Mild transaminitis
- Patient drinks 3 to 4 glasses of wine on daily basis, denies of having previous alcohol with
- Blood alcohol level of 56 at admission
- Maintain on MSAS and as needed Ativan protocol, no signs of overt withdrawal.
Acute Hyponatremia
- Sodium down trended to 124 today. Patient is symptomatic
- Urine electrolytes check ordered, pending
- Fluid restriction ordered
- Providing dose of IV lasix 20mg x1 , recheck bmp in afternoon
- will consider involving nephrology if not improved
Anion gap metabolic acidosis
Lactic acidosis
- LA of 6.8 at admission , improved to 1.1 post IVF
- Was provided bicarb IVF, monitor
CAIT
- resolved post IVF
Atrial fibrillation
- Continue metoprolol succinate with hold parameters
- Holding lisinopril
Emphysema
- Continue home as needed albuterol
� Continue inhaled steroids and tiotropium as well as inhaled long-acting beta agonist
DVT prophy�SCDs for now
CODE STATUS�full code
Total time spent : 54 mins
Care discussed with GI
Anticipated Discharge: > 48 hours
Subjective/Interval History
-
Date of Service: July 06, 2025
Continues to report diarrhea
Some diffuse abdominal discomfort
No nausea vomiting
Afebrile
Objective Data
-
Labs:
Laboratory Results
07/06/25 07/06/25
06:12 16:00
WBC 11.4 H
Hgb 12.3
Hct 34.5 L
Plt Count 159
Sodium 124 L Pending
Potassium 4.0
Chloride 96 L
Carbon Dioxide 23
BUN 13
Creatinine 1.0
Glucose 111 H
Calcium 8.2 L
Total Bilirubin 1.1
AST 44 H
ALT 40 H
Alkaline Phosphatase 152 H
Vital Signs:
Vital Signs
Temp Pulse Resp BP Pulse Ox
98.2 F 93 18 124/68 97
07/06/25 12:14 07/06/25 12:14 07/06/25 12:14 07/06/25 12:14 07/06/25 12:14
I&O
07/05/25 07/06/25 07/07/25
06:59 06:59 06:59
Intake Total 1160 / 1160
Balance 1160 / 1160
Review of Systems
-
Respiratory: Reports No Symptoms
Cardiac: Reports No Symptoms
Abdomen/GI: Reports Abdominal Pain; Denies Nausea or Vomiting
Physical Exam
-
General: Comfortable
HEENT: Negative Oxygen
GI: Soft, Normal Bowel Sounds and Tender; Negative Distended
Musculoskeletal: No Edema
Neuro: Awake, Alert, Oriented, No Motor Deficits and Nonfocal/Grossly Intact
Psych: Calm
--- NOTE | 2025-07-06 12:50 | PTCARENOTE ---
Pt ambulated to bathroom x1 with cane. Bright red bloody stool observed in toilet by this RN. Pt c/o lightheadedness. made aware, informed this RN that Eliquis will be placed on hold.
[2025-07-06] MEDS: DESYREL 150 MG PO (20:20)
[2025-07-06] MEDS: NON-FORMULARY ITEM 1 DROP LEFT EYE (20:20)
[2025-07-06 20:55] LABS: Sodium 125 mmol/L (135-145)
[2025-07-07] MEDS: ZOSYN 50 IV ×5 (00:04→23:20)
--- NOTE | 2025-07-07 06:00 | W.PN.GI.CBS2 ---
Today's Communication / Plan
-
Stable H/h and suspect old blood from yesterday without any recurrent bloody stools. Improving abdominal pain and resolution of previous leukocytosis, further supportive of resolving suspected ischemic colitis. Would continue to defer flex-sig at
this time. See rest of care as outlined below.
Assessment / Plan
-
Ms. Rios is a 80 y.o female with past medical history significant for ulcerative pancolitis (in deep remission, on Entyvio), A Fib (on eliquis) and EtOH use who initially presented with abdominal pain and bloody stools with acute onset of
symptoms. Found to have leukocytosis and CT imaging concerning for diffuse enterocolitis without any evidence of active GI bleeding. Found to be hypotensive on arrival as well. Previous colonoscopy back on 06/2024 and in deep remission in regards to
her UC as patient follows closely with Dr. Caballero and compliance with her Entyvio, last dose on 06/2025. Clinically, suspect ischemic colitis given bloody stools and abdominal pain and previous low BPs versus infectious colitis. Much less likely UC
flare or other concern for CMV colitis. Currently, she reports improving symptoms although still with abdominal discomfort however without any further bloody stools and having brown bowel movements. Now with recent blood cultures (1 out of 2)
07/04/25 with E coli bacteremia concerning for gut translocation. Recommend ongoing IV Zosyn. Fecal calprotectin has been ordered however would still suspect to be elevated in setting of colitis. Recommend close monitoring of serial Hgb and a/c
continues to remain on hold. Would defer any plans for a Flex-Sig at this time and agree with ongoing supportive care.
#Bloody Diarrhea- resolved suspicious for
#Ischemic Colitis versus #Infectious Colitis
#C/f Enterocolitis on CT Imaging
#E Coli Bacteremia 2/2 Translocation
#Hx of UC in Deep Remission (On Entyvio)
#Weakness/Hypotension
#Alcohol Use Disorder
#Hx of Pancreatic Cysts
#A Fib (on a/c) #COPD
Recommendations:
- Continue low-fiber, low-residue diet
- Hgb appears stable on serial CBC and without any further recurrent bloody stools
- Continue IV Zosyn given improving symptoms and down-trending WBC, monitor cultures and susceptibility testing
- C Diff and Norovirus PCR (-). Pending rest of stool culture/studies. Fecal calprotectin pending although still would be confounded as would be elevated in setting of acute inflammation
- No plans for Flex-Sig and suspect previous blood tinged stool likely old blood as having brown BMs and stable H/h, further supportive of likely resolving ischemic colitis
- Given stable H/h and without any further bloody stools, reasonable to restart anticoagulation (on eliquis)
- Pain control and IV anti-emetic PRN
- Discussed importance of EtOH cessation
- Rest of care as per primary team
Discussed with primary internal medicine team this AM. GI will continue to follow. Please call with any questions or concerns.
Subjective
Subjective
Date of Service: July 07, 2025
- Concern for small amount of blood yesterday afternoon, reported has having brown stools on 07/06 and 07/07
- Hgb remains stable on repeat AM labs
- Otherwise, no acute events overnight
Feeling better this AM and denies any bloody stools. Having looser brown bowel movements with minimal abdominal pain, now currently 3 out of 10. No other fevers, chills or other constitutional symptoms. Hoping to tolerate more solid food this
morning.
Objective
Data Reviewed
Laboratory Data:
Laboratory Results
PT 17.8 Sec (11.4-14.6) H 07/04/25 02:10
INR 1.41 07/04/25 02:10
APTT 28.3 Sec (23.4-35.0) 07/04/25 02:10
Total Bilirubin 1.1 mg/dl (0.2-1.3) 07/06/25 06:12
AST 44 U/L (14-36) H 07/06/25 06:12
ALT 40 U/L (0-35) H 07/06/25 06:12
Alkaline Phosphatase 152 U/L (38-126) H 07/06/25 06:12
Vital Signs and I&O:
Vital Signs
Temp Pulse Resp BP Pulse Ox
97.7 F 57 16 135/71 94
07/06/25 23:00 07/06/25 23:00 07/06/25 23:00 07/06/25 23:00 07/06/25 23:00
I&O
07/05/25 07/06/25 07/07/25
06:59 06:59 06:59
Intake Total 1160 / 1160 590 / 590
Balance 1160 / 1160 590 / 590
Physical Exam
Physical Exam
HEENT: Anicteric and Moist mucous membranes
Pulmonary: Other (Normal WOB on room air)
GI: Soft, Non Distended and Non Tender
Extremities: No Edema
Neuro: Non Focal
[2025-07-07 07:21] LABS: Hematocrit 30.1 % (37.0-47.0); Hemoglobin 10.7 g/dL (12.0-16.0); Mean Corp Hgb Conc. 35.5 g/dL (33.0-37.0); Mean Corpuscular Volume 104.2 fL (81.0-99.0); Platelet Count 149 10^3/uL (130-400); Red Cell Dist. Width 12.2 % (11.5-14.5)
[2025-07-07 07:31] VITALS: BP 136/74
[2025-07-07] MEDS: NON-FORMULARY ITEM 2 INH INH ×2 (07:42→19:38)
[2025-07-07 07:58] LABS: Blood Urea Nitrogen 9 mg/dl (7-17); Calcium 7.8 mg/dl (8.4-10.2); Carbon Dioxide 25 mmol/L (22-30); Chloride 99 mmol/L (98-107); Estimated Creatinine Clearance 44 ml/min; Glucose 89 mg/dl (70-99); Potassium 3.2 mmol/L (3.5-5.1); Sodium 127 mmol/L (135-145); eGFR > 60.00
[2025-07-07] MEDS: VALTREX 500 MG PO (08:10)
[2025-07-07] MEDS: VITAMIN B1 100 MG PO ×2 (08:10→20:03)
[2025-07-07] MEDS: CARDIZEM CD 180 MG PO (08:10)
[2025-07-07] MEDS: PROTONIX 40 MG PO (08:10)
[2025-07-07] MEDS: TOPROL XL 50 MG PO (08:11)
[2025-07-07] MEDS: LIPITOR 20 MG PO (08:11)
[2025-07-07] MEDS: CYMBALTA DELAYED RELEASE 60 MG PO (08:11)
[2025-07-07] MEDS: FOLVITE 1 MG PO (08:11)
[2025-07-07] MEDS: PRED FORTE 1% EYE DROPS 1 DROP LEFT EYE ×2 (08:12→20:01)
[2025-07-07] MEDS: NSS (PRESERVATIVE FREE) IV ×2 (08:12→19:59)
[2025-07-07] MEDS: TIMOPTIC 0.25% OPHTHALMIC SOLUTION 1 DROP LEFT EYE (08:12)
[2025-07-07] MEDS: KLOR-CON 40 MEQ PO (08:45)
--- NOTE | 2025-07-07 12:07 | W.PN.HOSP.TC ---
Today's Communication/Plan
-
PT recommending snf
check urine electrolytes
f/u sodium level
d/c msas/ativan
Assessment / Plan
Assessment / Plan
Acute bloody diarrhea
Suspected ischemic versus infectious
-CT abdomen pelvis angio with without IV contrast showing patent celiac/SMA. Diffuse enterocolitis suspected
-C. difficile negative. Norovirus neg. stool culture neg.
-Blood culture growing E. coli and suspecting of translocation of gut bacteria
-As patient had blood in the stool GI feels this is likely ischemic in nature.
-Stool calprotectin results is pending.
-Maintain on empiric antibiotic Zosyn, will adjust based on clinical response.
-Maintain on Protonix 40 mg daily.
-No further reported blood in stool. GI cleared for discharge.
E-coli bacteremia
- 1 set of blood culture growing E. coli, partially sensitive to oral antibiotic
- Currently on Zosyn continue, can be transition to course of Ancef at discharge.
Alcohol use disorder
Mild transaminitis
- Patient drinks 3 to 4 glasses of wine on daily basis, denies of having previous alcohol with
- Blood alcohol level of 56 at admission
- Discontinuing MSAS/Ativan as no signs of withdrawal
Acute Hyponatremia - Improving
- suspecting euvolemic vs hypovolemic with recovering diarrhea
- Sodium lowest of 124, coming up 127.
- Urine electrolytes check ordered, pending
- continue fluid restriction
Anion gap metabolic acidosis
Lactic acidosis
- LA of 6.8 at admission , improved to 1.1 post IVF
- Was provided bicarb IVF, monitor
CAIT
- resolved post IVF
Atrial fibrillation
- Continue metoprolol succinate with hold parameters
- Holding lisinopril
Emphysema
- Continue home as needed albuterol
� Continue inhaled steroids and tiotropium as well as inhaled long-acting beta agonist
DVT prophy�SCDs for now
CODE STATUS�full code
discussed with GI
Anticipated Discharge: Within 24 hours
Subjective/Interval History
-
Date of Service: July 07, 2025
abd pain is better
no reported blood in stool in night
Objective Data
-
Labs:
Laboratory Results
07/07/25
07:04
WBC 6.5
Hgb 10.7 L
Hct 30.1 L
Plt Count 149
Sodium 127 L
Potassium 3.2 L
Chloride 99
Carbon Dioxide 25
BUN 9
Creatinine 0.8
Glucose 89
Calcium 7.8 L
Vital Signs:
Vital Signs
Temp Pulse Resp BP Pulse Ox
98.1 F 76 16 136/74 96
07/07/25 07:31 07/07/25 08:10 07/07/25 07:43 07/07/25 08:10 07/07/25 07:43
I&O
07/06/25 07/07/25 07/08/25
06:59 06:59 06:59
Intake Total 1160 / 1160 590 / 590
Output Total 250 / 250
Balance 1160 / 1160 340 / 340
Review of Systems
-
Respiratory: Reports No Symptoms
Cardiac: Reports No Symptoms
Abdomen/GI: Reports No Symptoms
Physical Exam
-
General: Negative Appears in Distress
HEENT: Negative Oxygen
Respiratory: Clear to Auscultation
Cardiac: Regular Rhythm and S1/S2; Negative Murmur or Rub
GI: Soft, Nontender and Nondistended
Musculoskeletal: No Edema
Neuro: Awake, Alert, Oriented, No Motor Deficits and Nonfocal/Grossly Intact
Psych: Calm
--- NOTE | 2025-07-07 12:24 | CM ---
Requested PT OT order from .
Spoke with son earlier in day said PT eval to be ordered.
PT therapist said SNF.
Pt provided with [facility] She picked [facility] .
Pt will inform her son Reid of plan.
PLan [facility] SNF
CM please check SNF determinations
[2025-07-07 12:40] VITALS: BP 110/60; BP 126/80; BP 136/80
--- NOTE | 2025-07-07 14:28 | PTCARENOTE ---
spoke w/pt's son Reid, gave update on mom
[2025-07-07 15:13] VITALS: BP 104/60
[2025-07-07] MEDS: ELIQUIS 5 MG PO (20:01)
[2025-07-07 23:00] VITALS: BP 139/76
[2025-07-07] MEDS: NON-FORMULARY ITEM 1 DROP LEFT EYE (23:19)
[2025-07-07] MEDS: DESYREL 150 MG PO (23:23)
[2025-07-08] MEDS: ZOSYN 50 IV ×3 (05:20→17:04)
--- NOTE | 2025-07-08 06:00 | W.PN.GI.CBS2 ---
Today's Communication / Plan
-
No further bloody stools and stable H/h with near resolution of previous abdominal pain all secondary to resolving suspect ischemic colitis. Encouraged EtOH cessation along with close follow-up with her primary GI (Dr. Caballero) as an outpatient in
July. GI will sign-off, please re-contact with any questions or concerns.
Assessment / Plan
-
Ms. Rios is a 80 y.o female with past medical history significant for ulcerative pancolitis (in deep remission, on Entyvio), A Fib (on eliquis) and EtOH use who initially presented with abdominal pain and bloody stools with acute onset of
symptoms. Found to have leukocytosis and CT imaging concerning for diffuse enterocolitis without any evidence of active GI bleeding. Found to be hypotensive on arrival as well. Previous colonoscopy back on 06/2024 and in deep remission in regards to
her UC as patient follows closely with Dr. Caballero and compliance with her Entyvio, last dose on 06/2025. Clinically, suspect ischemic colitis given bloody stools and abdominal pain and previous low BPs versus infectious colitis. Much less likely UC
flare or other concern for CMV colitis. Currently, she reports improving symptoms although still with abdominal discomfort however without any further bloody stools and having brown bowel movements. Now with recent blood cultures (1 out of 2)
07/04/25 with E coli bacteremia concerning for gut translocation. Recommend ongoing IV Zosyn. Fecal calprotectin has been ordered however would still suspect to be elevated in setting of colitis. Recommend close monitoring of serial Hgb and a/c
continues to remain on hold. Would defer any plans for a Flex-Sig at this time and agree with ongoing supportive care.
#Bloody Diarrhea- resolved suspicious for
#Ischemic Colitis versus #Infectious Colitis
#E Coli Bacteremia 2/2 Translocation
#Hx of UC in Deep Remission (On Entyvio)
#Weakness/Hypotension
#Alcohol Use Disorder
#Hx of Pancreatic Cysts
#A Fib (on a/c) #COPD
Recommendations:
- Continue low-fiber, low-residue diet
- Hgb appears stable on serial CBC and without any further recurrent bloody stools
- Continue IV Zosyn given E coli bacteremia, can transition to orals at discharge
- C Diff and Norovirus PCR (-). Stool culture (-). Fecal calprotectin pending although still would be confounded as would be elevated in setting of acute inflammation
- No plans for Flex-Sig and suspect previous blood tinged stool likely old blood as having brown BMs and stable H/h, further supportive of likely resolving ischemic colitis
- Eliquis restarted without signs of recurrent bleeding
- Pain control and IV anti-emetic PRN
- Discussed importance of EtOH cessation
- Has f/u with Dr. Caballero as an outpatient along with her Entyvio infusion scheduled on 08/19/25, encouraged ongoing f/u as outpatient
- Rest of care as per primary team
Discussed with primary internal medicine team this AM. GI will sign-off, please re-contact with any questions or concerns.
Subjective
Subjective
Date of Service: July 08, 2025
- No acute events overnight and Hgb remains stable
Resting comfortably, having more formed brown bowel movements without any blood or further rectal bleeding. No further abdominal pain and reports minimal discomfort. Tolerated low-residue diet without difficulty. No other fevers, chills or other
constitutional symptoms.
Objective
Data Reviewed
Laboratory Data:
Laboratory Results
PT 17.8 Sec (11.4-14.6) H 07/04/25 02:10
INR 1.41 07/04/25 02:10
APTT 28.3 Sec (23.4-35.0) 07/04/25 02:10
Total Bilirubin 1.1 mg/dl (0.2-1.3) 07/06/25 06:12
AST 44 U/L (14-36) H 07/06/25 06:12
ALT 40 U/L (0-35) H 07/06/25 06:12
Alkaline Phosphatase 152 U/L (38-126) H 07/06/25 06:12
Vital Signs and I&O:
Vital Signs
Temp Pulse Resp BP Pulse Ox
98.3 F 93 16 139/76 97
07/07/25 23:00 07/07/25 23:00 07/07/25 23:00 07/07/25 23:00 07/07/25 23:00
I&O
07/06/25 07/07/25 07/08/25
06:59 06:59 06:59
Intake Total 1160 / 1160 590 / 590 540 / 540
Output Total 250 / 250
Balance 1160 / 1160 340 / 340 540 / 540
Physical Exam
Physical Exam
HEENT: Anicteric and Moist mucous membranes
Pulmonary: Other (Normal WOB on room air)
GI: Soft, Non Distended and Non Tender
Extremities: Warm
Neuro: Non Focal
[2025-07-08 06:36] LABS: Hematocrit 28.7 % (37.0-47.0); Hemoglobin 10.1 g/dL (12.0-16.0); Mean Corp Hgb Conc. 35.2 g/dL (33.0-37.0); Mean Corpuscular Volume 104.4 fL (81.0-99.0); Platelet Count 152 10^3/uL (130-400); Red Cell Dist. Width 12.1 % (11.5-14.5)
[2025-07-08 07:13] VITALS: BP 140/82
[2025-07-08 07:29] LABS: Blood Urea Nitrogen 6 mg/dl (7-17); Calcium 8.0 mg/dl (8.4-10.2); Carbon Dioxide 25 mmol/L (22-30); Chloride 100 mmol/L (98-107); Estimated Creatinine Clearance 44 ml/min; Glucose 82 mg/dl (70-99); Potassium 3.5 mmol/L (3.5-5.1); Sodium 127 mmol/L (135-145); eGFR > 60.00
[2025-07-08] MEDS: NON-FORMULARY ITEM 2 INH INH ×2 (07:44→19:55)
[2025-07-08] MEDS: ELIQUIS 2.5 MG PO ×2 (08:31→20:14)
[2025-07-08] MEDS: LIPITOR 20 MG PO (08:32)
[2025-07-08] MEDS: VALTREX 500 MG PO (08:32)
[2025-07-08] MEDS: FOLVITE 1 MG PO (08:32)
[2025-07-08] MEDS: TOPROL XL 50 MG PO (08:32)
[2025-07-08] MEDS: CYMBALTA DELAYED RELEASE 60 MG PO (08:32)
[2025-07-08] MEDS: VITAMIN B1 100 MG PO ×2 (08:32→20:14)
[2025-07-08] MEDS: CARDIZEM CD 180 MG PO (08:32)
[2025-07-08] MEDS: PRED FORTE 1% EYE DROPS 1 DROP LEFT EYE ×2 (08:32→20:15)
[2025-07-08] MEDS: PROTONIX 40 MG PO (08:32)
[2025-07-08] MEDS: TIMOPTIC 0.25% OPHTHALMIC SOLUTION 1 DROP LEFT EYE (08:33)
[2025-07-08] MEDS: NSS (PRESERVATIVE FREE) IV ×2 (08:33→20:10)
[2025-07-08] MEDS: ELIQUIS PO (08:52)
--- NOTE | 2025-07-08 11:32 | W.PN.HOSP.TC ---
Today's Communication/Plan
-
continue OFR
monitor BMP
continue Abx
DC planning to SNF
Assessment / Plan
Assessment / Plan
Assessment:
Acute bloody diarrhea
Suspected ischemic versus infectious
-CT abdomen pelvis angio with without IV contrast showing patent celiac/SMA. Diffuse enterocolitis suspected
-C. difficile negative. Norovirus neg. stool culture neg.
-Blood culture growing E. coli and suspecting of translocation of gut bacteria
-As patient had blood in the stool GI feels this is likely ischemic in nature.
-Stool calprotectin results is pending.
-Maintain on empiric antibiotic Zosyn, day 5
-Maintain on Protonix 40 mg daily.
-No further reported blood in stool. GI cleared for discharge.
E-coli bacteremia
- 1 set of blood culture growing E. coli
- Maintain on empiric antibiotic Zosyn, day /; at discharge transition to Cipro or Augmentin
Alcohol use disorder
Mild transaminitis
- Patient drinks 3 to 4 glasses of wine on daily basis, denies of having previous alcohol with
- Blood alcohol level of 56 at admission
- Discontinuing MSAS/Ativan as no signs of withdrawal
Acute Hyponatremia - Improving
- suspecting euvolemic vs hypovolemic with recovering diarrhea
- Sodium lowest of 124, coming up 127.
- urine studies pending
- continue fluid restriction
Anion gap metabolic acidosis
Lactic acidosis
- LA of 6.8 at admission , improved to 1.1 post IVF
- Was provided bicarb IVF, monitor
CAIT
- resolved post IVF
Atrial fibrillation
- Continue metoprolol succinate with hold parameters
- Eliquis resumed 07/07
Emphysema
- Continue home as needed albuterol
- Continue inhaled steroids and tiotropium as well as inhaled long-acting beta agonist
DVT ppx: Eliquis
Code: Full
discussed with GI. Medically stable for DC Pending SNF bed
Anticipated Discharge: Within 24 hours
Subjective/Interval History
-
Date of Service: July 08, 2025
resting comfortably
no further GI bleeding/normal brown BMs
Eliquis resumed last evening
Objective Data
-
Labs:
Laboratory Results
07/08/25
06:06
WBC 5.5
Hgb 10.1 L
Hct 28.7 L
Plt Count 152
Sodium 127 L
Potassium 3.5
Chloride 100
Carbon Dioxide 25
BUN 6 L
Creatinine 0.8
Glucose 82
Calcium 8.0 L
Vital Signs:
Vital Signs
Temp Pulse Resp BP Pulse Ox
98.3 F 94 16 140/82 97
07/08/25 07:13 07/08/25 07:47 07/08/25 07:47 07/08/25 08:32 07/08/25 07:47
I&O
07/07/25 07/08/25 07/09/25
06:59 06:59 06:59
Intake Total 590 / 590 540 / 540
Output Total 250 / 250
Balance 340 / 340 540 / 540
Physical Exam
-
General: No Apparent Distress
HEENT: Normocephalic and Atraumatic
Respiratory: Negative Wheezes
Cardiac: Regular Rhythm and S1/S2
GI: Soft and Nontender
Genito-urinary: No Costovertebral Tender
Musculoskeletal: No Edema
Neuro: AO x 3
Psych: Calm
Data Reviewed
-
Total Time Spent with Patient (in minutes): 42
Labs: Labs Reviewed by me
[2025-07-08] MEDS: SODIUM CHLORIDE 1 GRAM PO ×2 (12:43→20:14)
--- NOTE | 2025-07-08 13:38 | CM ---
Addendum entered by Kalli Strickland 07/08/25 14:02:
Left message with son Zac
patient states that her daughter will transport
Original Note:
Patient seen at bedside
[facility] accepted. spoke with Kisha bed available tomorrow
TT hospialist
IMM EXPLAINED & SIGNED. In chart
PLAN: [facility] tomorrow
report #: [phone]
fax #: [phone]
[2025-07-08 15:28] VITALS: BP 127/65
[2025-07-08 17:08] VITALS: BP 149/80; PULSE 86; O2SAT 97
[2025-07-08 21:06] LABS: Calprotectin, Fecal 45 ug/g (<=49)
[2025-07-08 22:50] VITALS: BP 160/83
[2025-07-09] MEDS: NON-FORMULARY ITEM 1 DROP LEFT EYE (00:18)
[2025-07-09] MEDS: ZOSYN 50 IV ×3 (00:18→12:17)
[2025-07-09] MEDS: DESYREL 150 MG PO (00:18)
[2025-07-09 06:28] LABS: Hematocrit 29.4 % (37.0-47.0); Hemoglobin 10.5 g/dL (12.0-16.0); Mean Corp Hgb Conc. 35.7 g/dL (33.0-37.0); Mean Corpuscular Volume 103.9 fL (81.0-99.0); Platelet Count 165 10^3/uL (130-400); Red Cell Dist. Width 12.2 % (11.5-14.5)
[2025-07-09 07:05] LABS: Blood Urea Nitrogen 6 mg/dl (7-17); Calcium 8.1 mg/dl (8.4-10.2); Carbon Dioxide 24 mmol/L (22-30); Chloride 102 mmol/L (98-107); Estimated Creatinine Clearance 44 ml/min; Glucose 83 mg/dl (70-99); Potassium 3.2 mmol/L (3.5-5.1); Sodium 128 mmol/L (135-145); eGFR > 60.00
[2025-07-09 07:17] VITALS: BP 146/78
[2025-07-09] MEDS: NON-FORMULARY ITEM 2 INH INH (07:31)
[2025-07-09] MEDS: PROTONIX 40 MG PO (09:01)
[2025-07-09] MEDS: CYMBALTA DELAYED RELEASE 60 MG PO (09:01)
[2025-07-09] MEDS: ELIQUIS 2.5 MG PO (09:02)
[2025-07-09] MEDS: VITAMIN B1 100 MG PO (09:02)
[2025-07-09] MEDS: FOLVITE 1 MG PO (09:02)
[2025-07-09] MEDS: SODIUM CHLORIDE 1 GRAM PO (09:02)
[2025-07-09] MEDS: TOPROL XL 50 MG PO (09:02)
[2025-07-09] MEDS: LIPITOR 20 MG PO (09:02)
[2025-07-09] MEDS: TIMOPTIC 0.25% OPHTHALMIC SOLUTION 1 DROP LEFT EYE (09:03)
[2025-07-09] MEDS: VALTREX 500 MG PO (09:03)
[2025-07-09] MEDS: PRED FORTE 1% EYE DROPS 1 DROP LEFT EYE (09:03)
[2025-07-09] MEDS: CARDIZEM CD 180 MG PO (09:03)
[2025-07-09] MEDS: NSS (PRESERVATIVE FREE) IV (09:03)
[2025-07-09] MEDS: KCL 40 MEQ PO (09:04)
--- NOTE | 2025-07-09 09:29 | CM ---
Addendum entered by Kalli Strickland 07/09/25 13:37:
1430 transport set - updated Kisha juan
Addendum entered by Kalli Strickland 07/09/25 12:35:
patient stated dtr cannot transport
transport forms on chart
Original Note:
left message with Kisha juan [facility] accepted, bed avail today
IMM EXPLAINED yesterday & SIGNED. In chart
left message with lilly Frank
patient yesterday stated dtr would transport-will confirm
PLAN: [facility] today
report #: [phone]
fax #: [phone]
--- NOTE | 2025-07-09 09:51 | W.PN.HOSP.TC ---
Today's Communication/Plan
-
dc to SNF
Assessment / Plan
Assessment / Plan
Assessment:
Acute bloody diarrhea
Suspected ischemic versus infectious
-CT abdomen pelvis angio with without IV contrast showing patent celiac/SMA. Diffuse enterocolitis suspected
-C. difficile negative. Norovirus neg. stool culture neg.
-Blood culture growing E. coli and suspecting of translocation of gut bacteria
-As patient had blood in the stool GI feels this is likely ischemic in nature.
-Stool calprotectin results is pending.
-Maintain on empiric antibiotic Zosyn, day 6
-Maintain on Protonix 40 mg daily.
-No further reported blood in stool. GI cleared for discharge.
E-coli bacteremia
- 1 set of blood culture growing E. coli
- Maintain on empiric antibiotic Zosyn, day 02/02; at discharge transition to Augmentin
Alcohol use disorder
Mild transaminitis
- Patient drinks 3 to 4 glasses of wine on daily basis, denies of having previous alcohol with
- Blood alcohol level of 56 at admission
- Discontinuing MSAS/Ativan as no signs of withdrawal
Acute Hyponatremia - Improving
- suspecting euvolemic vs hypovolemic with recovering diarrhea
- Sodium lowest of 124, coming up 128.
- continue fluid restriction
- continue salt tabs x 5 days
- repeat BMP Tuesday
Anion gap metabolic acidosis
Lactic acidosis
- LA of 6.8 at admission , improved to 1.1 post IVF
- Was provided bicarb IVF, monitor
CAIT
- resolved post IVF
Atrial fibrillation
- Continue metoprolol succinate with hold parameters
- Eliquis resumed 07/07
Emphysema
- Continue home as needed albuterol
- Continue inhaled steroids and tiotropium as well as inhaled long-acting beta agonist
DVT ppx: Eliquis
Code: Full
Dispo: DC to SNF today
Anticipated Discharge: Today
Subjective/Interval History
-
Date of Service: July 09, 2025
resting comfortably, no complaints
Objective Data
-
Labs:
Laboratory Results
07/09/25
06:06
WBC 5.8
Hgb 10.5 L
Hct 29.4 L
Plt Count 165
Sodium 128 L
Potassium 3.2 L
Chloride 102
Carbon Dioxide 24
BUN 6 L
Creatinine 0.8
Glucose 83
Calcium 8.1 L
Vital Signs:
Vital Signs
Temp Pulse Resp BP Pulse Ox
98.0 F 67 14 146/78 94
07/09/25 07:17 07/09/25 07:33 07/09/25 07:33 07/09/25 07:17 07/09/25 07:33
I&O
07/08/25 07/09/25 07/10/25
06:59 06:59 06:59
Intake Total 540 / 540 1320 / 1320
Balance 540 / 540 1320 / 1320
Physical Exam
-
General: No Apparent Distress
HEENT: Normocephalic and Atraumatic
Respiratory: Negative Wheezes
Cardiac: Regular Rhythm and S1/S2
GI: Soft and Nontender
Genito-urinary: No Costovertebral Tender
Neuro: AO x 3
Psych: Calm
Data Reviewed
-
Total Time Spent with Patient (in minutes): 42
Labs: Labs Reviewed by me
[2025-07-09 15:01] VITALS: BP 140/82
--- NOTE | 2025-07-09 15:25 | W.DCSUMMARY ---
Discharge Summary
Discharge Data
Date of Admission: 07/04/25
Date of Discharge: 07/09/25
-
Pending Results: No
Hospital Course
80 y/o F past medical history significant for alcohol dependence, atrial fibrillation on anticoagulation, ulcerative colitis, irritable bowel syndrome, tobacco dependence and COPD/emphysema presented to ER on 07/04 with diarrhea and bright red blood
per rectum. Stool studies were negative. Patient was seen by GI and diagnosed with ischemic colitis. She was placed on IVF and IV Zosyn with improvement (cessation of blood BMs). Eliquis was initially held but was cleared to resume by GI with stable
Hb prior to discharge.
Her course was complicated by E. Coli bacteremia likely from gut translocation - she will complete 14 total days of antibiotics (Augmentin). Patient also had Alcohol withdrawal requiring MSAS protocol with prn Ativan. Also patient had
hyponatremia/CAIT/metabolic acidosis which responded to IV Fluids and she will be on salt tabs at discharge with plan for repeat BMP Tuesday.
She was discharged in stable condition to SNF on 07/09/25.
Discharge Plan
-
Patient Disposition: Long-Term/SNF
Discharge Diagnosis/Procedures: ischemic colitis with bloody diarrhea. E. Coli bacteremia. Hyponatremia/lactic acidosis/CAIT - improved with IV fluids
Condition: Fair
Diet: Low Residue
Additional Diets: 1200 cc fluid restriction
Activity: As tolerated
Bathing Restrictions: None
Blood Work: repeat BMP on Thursday 07/12 for monitoring potassium and sodium
Other Services: PT and OT
Referrals:
Gris Caballero MD [Active, Gastroenterology] - in four to six weeks
Rona Ureña PA-C [Family Provider, Internal Medicine] - in one week
Prescriptions:
New
amoxicillin-pot clavulanate 875-125 mg tablet
1 tab PO Q12H Qty: 16 0RF
Eliquis 2.5 mg Tablet
2.5 mg PO BID Qty: 60 0RF
lisinopril 10 mg tablet
10 mg PO DAILY Qty: 30 0RF
pantoprazole 40 mg Tablet,Delayed Release (Dr/Ec)
40 mg PO DAILY Qty: 30 0RF
sodium chloride 1,000 mg Tablet,Soluble
1,000 mg PO BID Qty: 10 0RF
Continued
atorvastatin 20 MG tablet
20 mg PO DAILY
valacyclovir 500 MG tablet
1,000 mg PO DAILY
timolol maleate 1 DROP drops
1 drp LEFT EYE DAILY
trazodone 150 MG tablet
150 mg PO HS
duloxetine 60 MG capsule,delayed release(DR/EC)
60 mg PO DAILY
Prolia 60 MG/ML syringe
60 mg SQ Q6M
Rhopressa 0.02 % Drops
1 drp LEFT EYE HS Qty: 0
diltiazem HCl 180 MG capsule,extended release 24hr
180 mg PO DAILY Qty: 30 0RF
prednisolone acetate 1 % Drops,Suspension
1 drp LEFT EYE BID
metoprolol succinate 25 mg Tablet Extended Release 24 Hr
50 mg PO DAILY
Entyvio 300 mg Recon Soln
300 mg IV Q8W
Breztri Aerosphere 160-9-4.8 mcg/actuation Hfa Aerosol Inhaler
2 inh INHALATION BID
Multivitamin & Vitamin E
1 tab PO QPM
Artificial Tears (PF) Dropperette
1 drp BOTH EYES Q4HPRN PRN (Reason: dry eyes)
Discontinued
Eliquis 5 MG tablet
5 mg PO BID Qty: 60 0RF
lisinopril 20 mg Tablet
20 mg PO DAILY
Discharge Orders:
Discharge Patient (As Directed); Ordered 07/09/25
Ordered By: Chava Hernández
Discharge Date and Time
Discharge Date/Time: 07/09/25 15:15
Print Language: MACEDONIAN
== END 2025-07-09 15:15 | DRG 394 ==
LOC: 3 WEST ACU 06:12
PROVIDERS: Hospitalist; Nurse Practitioner Family; Physician Assistant; ADMITTING PHYSICIAN Internal Medicine; ATTENDING PHYSICIAN Internal Medicine; CONSULT PHYSICIAN Internal Medicine Gastroenterology; EMERGENCY PHYSICIAN Emergency Medicine; FAMILY PHYSICIAN Physician Assistant
DX: K55.9 Vascular disorder of intestine, unspecified (principal); D68.32 Hemorrhagic disorder due to extrinsic circulating anticoagulants; K92.1 Melena; E87.1 Hypo-osmolality and hyponatremia; E87.20 Acidosis, unspecified; N17.9 Acute kidney failure, unspecified; K86.2 Cyst of pancreas; K51.00 Ulcerative (chronic) pancolitis without complications; R78.81 Bacteremia; K57.30 Diverticulosis of large intestine without perforation or abscess without bleeding; F10.20 Alcohol dependence, uncomplicated; Y90.2 Blood alcohol level of 40-59 mg/100 ml; J43.9 Emphysema, unspecified; K76.0 Fatty (change of) liver, not elsewhere classified; I48.0 Paroxysmal atrial fibrillation; I10 Essential (primary) hypertension; B96.20 Unspecified Escherichia coli [E. coli] as the cause of diseases classified elsewhere; E86.1 Hypovolemia; Z79.899 Other long term (current) drug therapy; Z87.891 Personal history of nicotine dependence; Z79.01 Long term (current) use of anticoagulants; Z11.52 Encounter for screening for COVID-19
CPT/HCPCS: 70450; 74174; 80048; 80053; 82077; 82550; 82805; 83605; 83993; 84295; 85025; 85027; 85610; 85652; 85730; 86140; 86803; 86850; 86900; 86901; 87040; 87045; 87046; 87077; 87154; 87186; 87205; 87324; 87427; 87449; 87798; 87811; 93005; 94640; 94760; 96365; 96366; 96367; 96375; 97110; 97162; 97166; 99285; Q9967

== ENCOUNTER → 2025-08-01 11:59 | Outpatient (REF) | payer MEDICARE, SELFPAY ==
[2025-08-01 12:44] LABS: Hematocrit 33.7 % (37.0-47.0); Hemoglobin 11.9 g/dL (12.0-16.0); Mean Corp Hgb Conc. 35.3 g/dL (33.0-37.0); Mean Corpuscular Volume 100.9 fL (81.0-99.0); Nucleated Red Blood Cells % 0 %; Platelet Count 243 10^3/uL (130-400); Red Cell Dist. Width 12.6 % (11.5-14.5)
[2025-08-01 13:09] LABS: ALT (SGPT) 20 U/L (0-35); AST (SGOT) 32 U/L (14-36); Albumin 4.1 g/dl (3.5-5.0); Alkaline Phosphatase 143 U/L (38-126); Blood Urea Nitrogen 9 mg/dl (7-17); Calcium 9.3 mg/dl (8.4-10.2); Carbon Dioxide 26 mmol/L (22-30); Chloride 98 mmol/L (98-107); Glucose 89 mg/dl (70-99); Iron 90 ug/dl (37-170); Magnesium 1.6 mg/dl (1.6-2.3); Potassium 3.8 mmol/L (3.5-5.1); Sodium 133 mmol/L (135-145); Total Protein 7.0 g/dl (6.3-8.2); eGFR > 60.00
[2025-08-01 13:19] LABS: Total Iron Binding Capacity 269 ug/dl (265-497)
[2025-08-01 13:43] LABS: Ferritin 88.2 ng/ml (11.1-264.0)
== END ==
LOC: REG 11:59
PROVIDERS: ATTENDING PHYSICIAN Physician Assistant
DX: Z51.89 Encounter for other specified aftercare (principal); K51.911 Ulcerative colitis, unspecified with rectal bleeding; D50.9 Iron deficiency anemia, unspecified; E83.42 Hypomagnesemia; E87.1 Hypo-osmolality and hyponatremia
CPT/HCPCS: 36415; 80053; 82728; 83540; 83550; 83735; 85025